=== PATIENT | male | born 1970 | race Caucasian/White ===

== ENCOUNTER 2017-09-05 14:14 | Emergency (ER) | payer SELFPAY ==
[2017-09-05] MEDS ORDERED: HYDROCODONE/ACETAMINOPHEN 5-325 MG TABLET PO ONE (16:01)
--- NOTE | 2017-09-05 18:04 | RADIOLOGY REPORT (SQ) ---
EXAM DESCRIPTION: CT ABD/PELVIS NO ORAL OR IV COMPLETED DATE/TIME: 09/05/2017 4:14 pm REASON FOR STUDY: flank pain COMPARISON: March 2014 TECHNIQUE: CT scan of the abdomen and pelvis performed without intravenous or oral contrast. Images reviewed with lung, soft tissue, and bone windows. Reconstructed coronal and sagittal MPR images revi ewed. All images stored on PACS. All CT scanners at this facility use dose modulation, iterative reconstruction, and/or weight based d osing when appropriate to reduce radiation dose to as low as reasonably achievable (ALARA). [facility]: Dose Right [facility]: CareDose [facility]: Dose Right [facility]: Teradose 4D [facility]: Smart ExpertFlyer RADIATION DOSE: CT Rad equipment meets quality standard of care and radiation dose reduction techniq ues were employed. CTDIvol: 14.6 mGy. DLP: 798 mGy-cm.mGy. LIMITATIONS: None. FINDINGS: LOWER CHEST: No significant findings. No nodules or infiltrates. NON-CONTRASTED LIVER, SPLEEN, ADRENALS: Evaluation limited by lack of IV contrast. No identified sign ificant masses. PANCREAS: No masses. No peripancreatic inflammatory changes. GALLBLADDER: No identified stones by CT criteria. No inflammatory changes to suggest cholecystitis. RIGHT KIDNEY AND URETER: No suspicious masses. Assessment limited by lack of IV contrast. No signif icant calcifications. No hydronephrosis or hydroureter. LEFT KIDNEY AND URETER: No suspicious masses. Assessment limited by lack of IV contrast. No signifi cant calcifications. No hydronephrosis or hydroureter. AORTA AND RETROPERITONEUM: No aneurysm. No retroperitoneal masses or adenopathy. BOWEL AND PERITONEAL CAVITY: No obvious masses or inflammatory changes. No free fluid. APPENDIX: Normal. PELVIS, BLADDER, AND ABDOMINAL WALL:No abnormal masses. No free fluid. Bladder normal. BONES: No significant findings. OTHER: No other significant finding. IMPRESSION: NO SIGNIFICANT OR ACUTE PROCESS IN THE ABDOMEN OR PELVIS. COMMENT: Quality ID # [id number]: Final reports with documentation of one or more dose reduction techniques (e.g., Automated exposure control, adjustment of the mA and/or kV according to patient size, use of iterative reconstruction technique) TECHNICAL DOCUMENTATION: JOB ID: [id number] [employer]- All Rights Reserved
[2017-09-05 18:07] LABS: APPEARANCE,URINE CLEAR; BILIRUBIN,URINE NEGATIVE (NEGATIVE); COLOR,URINE STRAW; GLUCOSE, URINE NEGATIVE (NEGATIVE); KETONES,URINE NEGATIVE (NEGATIVE); LEUKOCYTE ESTERASE,URINE NEGATIVE (NEGATIVE); NITRITE,URINE NEGATIVE (NEGATIVE); PROTEIN,URINE NEGATIVE (NEGATIVE); URINE SPECIFIC GRAVITY 1.013; UROBILINOGEN,URINE NEGATIVE mg/dL (<2.0)
--- NOTE | 2017-09-05 19:30 | ER Document Report ---
ED General - General Chief Complaint: Flank Pain Stated Complaint: FLANK PAIN Time Seen by Provider: 09/05/17 16:01 Mode of Arrival: Ambulatory Information source: Patient Notes: Patient states he has had several days of bilateral low back pain. Radiates into the buttocks and the abdomen. Nothing makes it better or worse. He does not feel that movement changes the pain much. Some nausea no vomiting or diarrhea. No problems with urination or bowel movements. No rashes. No known trauma. The pain is sharp. TRAVEL OUTSIDE OF THE [place] IN LAST 30 DAYS: No - Related Data Allergies/Adverse Reactions: Penicillins Allergy (Verified 04/24/16 09:25) Sulfa (Sulfonamide Antibiotics) Allergy (Verified 04/24/16 09:25) Past Medical History - General Information source: Patient - Social History Smoking Status: Unknown if Ever Smoked Frequency of alcohol use: Occasional Drug Abuse: None Lives with: Family Family History: Reviewed & Not Pertinent - Past Medical History Cardiac Medical History: Reports: Hx Hypercholesterolemia Neurological Medical History: Reports: Hx Migraine GI Medical History: Reports: Hx Irritable Bowel, Hx Colonoscopy - Diverticulosis , Hx Endoscopy. Denies: Hx Diverticulitis - Immunizations Hx Diphtheria, Pertussis, Tetanus Vaccination: Yes Review of Systems - Review of Systems Constitutional: denies: Chills, Fever Cardiovascular: denies: Chest pain, Palpitations Respiratory: denies: Cough, Short of breath -: Yes All other systems reviewed and negative Physical Exam - Vital signs Vitals: Temp Pulse Resp BP Pulse Ox 98.0 F 73 16 119/67 97 09/05/17 14:31 09/05/17 14:31 09/05/17 14:31 09/05/17 14:31 09/05/17 14:31 Interpretation: Normal - General General appearance: Appears well, Alert - HEENT Head: Normocephalic, Atraumatic Eyes: Normal Pupils: PERRL - Respiratory Respiratory status: No respiratory distress Chest status: Nontender Breath sounds: Normal Chest palpation: Normal - Cardiovascular Rhythm: Regular Heart sounds: Normal auscultation Murmur: No - Abdominal Inspection: Normal Distension: No distension Bowel sounds: Normal Tenderness: Nontender Organomegaly: No organomegaly - Back Back: Normal, Nontender - Extremities General upper extremity: Normal inspection, Nontender, Normal color, Normal ROM , Normal temperature General lower extremity: Normal inspection, Nontender, Normal color, Normal ROM , Normal temperature, Normal weight bearing. No: Gera's sign - Neurological Neuro grossly intact: Yes Cognition: Normal Orientation: AAOx4 [place] Coma Scale Eye Opening: Spontaneous [place] Coma Scale Verbal: Oriented [place] Coma Scale Motor: Obeys Commands [place] Coma Scale Total: 15 Speech: Normal Motor strength normal: LUE, RUE, LLE, RLE Sensory: Normal - Psychological Associated symptoms: Normal affect, Normal mood - Skin Skin Temperature: Warm Skin Moisture: Dry Skin Color: Normal Course - Vital Signs Vital signs: Temp Pulse Resp BP Pulse Ox 98.0 F 73 16 119/67 97 09/05/17 14:31 09/05/17 14:31 09/05/17 14:31 09/05/17 14:31 09/05/17 14:31 - Diagnostic Test Radiology reviewed: Image reviewed, Reports reviewed - CT exam shows no evidence of acute intra-abdominal pathology Discharge - Discharge Clinical Impression: Low back pain Qualifiers: Chronicity: acute Back pain laterality: bilateral Sciatica presence: without sciatica Qualified Code(s): M54.5 - Low back pain Condition: Stable Disposition: HOME, SELF-CARE Instructions: Low Back Pain ([facility]) Additional Instructions: Your blood pressure is borderline elevated. Please have this rechecked within 1 week by your doctor. Prescriptions: Hydrocodone/Acetaminophen [[place] 5-325 mg Tablet] 1 tab PO Q6 PRN 4 Days #12 tablet PRN Reason: Forms: Elevated Blood Pressure, Return to Work Referrals: FERNIE YOUSIF MD [COMMUNITY BASED STAFF] - Follow up in 3-5 days
[2017-09-05 20:17] VITALS: BP 121/76
== END 2017-09-05 20:10 | disposition home or self-care (01) ==
LOC: ER 14:14
DX: M54.5 Low back pain (principal); R11.0 Nausea; Z88.0 Allergy status to penicillin; Z88.2 Allergy status to sulfonamides
CPT/HCPCS: 74176; 81001; 99284

== ENCOUNTER 2017-09-29 16:50 | Emergency (ER) | payer SELFPAY ==
--- NOTE | 2017-09-29 18:34 | ER Document Report ---
ED Medical Screen (RME) - General Chief Complaint: Dizziness Stated Complaint: DIZZINESS Time Seen by Provider: 09/29/17 18:15 Mode of Arrival: Ambulatory Information source: Patient TRAVEL OUTSIDE OF THE [place] IN LAST 30 DAYS: No - HPI Notes: 09/29/17 18:30 46-year-old male with history of hypertension presents today with complaints of having 2 episodes of feeling dizzy with disorientation that was fleeting, word finding, feelings of syncope, decreased appetite that occurred 3 days ago as well as today and left-sided chest pain that occurred 3 days ago. Denies any trauma. Denies any numbness or tingling down bilateral upper and lower extremities, denies any new medications, new foods or travel. Denies any rashes. Reports he had intermittent blurred vision when he has these episodes that lasted for a few hours. Also feels like he is "losing sense of time". Reports this is not for him, has never had this issue before. Denies that the room is spinning or that he is spinning. Denies any nausea, no vomiting or diarrhea, abdominal pain, shortness of breath, rectal, penile or back pain. Denies any lightheadedness, loss of vision or double vision. Denies speech changes, facial droop, numbness or tingling in bilateral upper or lower extremities. States chest pain was fleeting lasted for only a few seconds. Denies any prior history of cardiac issues. Grandfather from a stroke, parents from cancers of unknown origin and unsure how grandmother had passed. Patient does not smoke. Denies any illicit drug use. Patient reports he also feels stressed due to increased work. - Related Data Allergies/Adverse Reactions: Penicillins Allergy (Verified 09/29/17 16:51) Sulfa (Sulfonamide Antibiotics) Allergy (Verified 09/29/17 16:51) Past Medical History - General Information source: Patient - Social History Chew tobacco use (# tins/day): No Frequency of alcohol use: None Drug Abuse: None Family history: CVA, Hypertension - Past Medical History Cardiac Medical History: Reports: Hx Hypercholesterolemia Neurological Medical History: Reports: Hx Migraine Renal/ Medical History: Denies: Hx Peritoneal Dialysis GI Medical History: Reports: Hx Irritable Bowel, Hx Colonoscopy - Diverticulosis , Hx Endoscopy. Denies: Hx Diverticulitis - Immunizations Hx Diphtheria, Pertussis, Tetanus Vaccination: Yes Review of Systems - Review of Systems Constitutional: No symptoms reported EENT: No symptoms reported Cardiovascular: No symptoms reported Respiratory: No symptoms reported Gastrointestinal: No symptoms reported Genitourinary: No symptoms reported Male Genitourinary: No symptoms reported Musculoskeletal: No symptoms reported Skin: No symptoms reported Hematologic/Lymphatic: No symptoms reported Neurological/Psychological: See HPI Physical Exam - Vital signs Vitals: Temp Pulse Resp BP Pulse Ox 98.7 F 71 20 114/63 97 09/29/17 17:04 09/29/17 17:04 09/29/17 17:04 09/29/17 17:04 09/29/17 17:04 - Respiratory Respiratory status: No respiratory distress Chest status: Nontender Breath sounds: Normal Chest palpation: Normal - Cardiovascular Rhythm: Regular Heart sounds: Normal auscultation Normal capillary refill: Yes - Neurological Neuro grossly intact: Yes Cognition: Normal Orientation: AAOx4 [place] Coma Scale Eye Opening: Spontaneous [place] Coma Scale Verbal: Oriented [place] Coma Scale Motor: Obeys Commands [place] Coma Scale Total: 15 Speech: Normal Cranial nerves: Normal Cerebellar coordination: Normal Motor strength normal: LUE, RUE, LLE, RLE Additional motor exam normals: Equal childcare aide Babinski reflex: Normal (flexor plantar) - Psychological Associated symptoms: Normal affect, Normal mood, Anxious Course - Vital Signs Vital signs: Temp Pulse Resp BP Pulse Ox 98.7 F 71 20 114/63 97 09/29/17 17:04 09/29/17 17:04 09/29/17 17:04 09/29/17 17:04 09/29/17 17:04
[2017-09-29 19:13] LABS: ABSOLUTE LYMPHOCYTES (AUTO) 2.7 10^3/uL (0.5-4.7); ABSOLUTE MONOCYTES (AUTO) 1.2 10^3/uL (0.1-1.4); ABSOLUTE NEUT (AUTO) 8.8 10^3/uL (1.7-8.2); BASOPHILS % (AUTO) 0.4 % (0-2); EOSINOPHILS % (AUTO) 0.2 % (0-6); HEMATOCRIT 43.1 % (37.9-51.0); HEMOGLOBIN 15.2 g/dL (13.5-17.0); LYMPHOCYTES % (AUTO) 21.1 % (13-45); MEAN CORPUSCULAR HEMOGLOBIN 30.2 pg (27.0-33.4); MEAN CORPUSCULAR HGB CONC 35.3 g/dL (32.0-36.0); MEAN CORPUSCULAR VOLUME 86 fl (80-97); MONOCYTES % (AUTO) 9.2 % (3-13); PLATELET COUNT 350 10^3/uL (150-450); RED BLOOD COUNT 5.04 10^6/uL (4.35-5.55); RED CELL DISTRIBUTION WIDTH 12.8 % (11.5-14.0); SEGMENTED NEUTROPHILS % (AUTO) 69.1 % (42-78); TOTAL CELLS COUNTED % (AUTO) 100 %; WHITE BLOOD COUNT 12.8 10^3/uL (4.0-10.5)
--- NOTE | 2017-09-29 19:14 | RADIOLOGY REPORT (SQ) ---
EXAM DESCRIPTION: CT HEAD WITHOUT COMPLETED DATE/TIME: 09/29/2017 7:05 pm REASON FOR STUDY: confusion, dizziness, word findings COMPARISON: None. TECHNIQUE: Axial images acquired through the brain without intravenous contrast. Images reviewed wi th bone, brain and subdural windows. Images stored on PACS. All CT scanners at this facility use dose modulation, iterative reconstruction, and/or weight based d osing when appropriate to reduce radiation dose to as low as reasonably achievable (ALARA). [facility]: Dose Right [facility]: CareDose [facility]: Dose Right [facility]: Teradose 4D [facility]: [employer] Direct RADIATION DOSE: CT Rad equipment meets quality standard of care and radiation dose reduction techniq ues were employed. CTDIvol: 64.6 mGy. DLP: 1163 mGy-cm. mGy. LIMITATIONS: None. FINDINGS: VENTRICLES: Normal size and contour. CEREBRUM: No masses. No hemorrhage. No midline shift. No evidence for acute infarction. Normal gra y/white matter differentiation. No areas of low density in the white matter. CEREBELLUM: No masses. No hemorrhage. No alteration of density. No evidence for acute infarction. EXTRAAXIAL SPACES: No fluid collections. No masses. ORBITS AND GLOBE: No intra- or extraconal masses. Normal contour of globe without masses. CALVARIUM: No fracture. PARANASAL SINUSES: No fluid or mucosal thickening. SOFT TISSUES: No mass or hematoma. OTHER: No other significant finding. IMPRESSION: NORMAL BRAIN CT WITHOUT CONTRAST. EVIDENCE OF ACUTE STROKE: NO. COMMENT: Quality ID # [id number]: Final reports with documentation of one or more dose reduction techniques (e.g., Automated exposure control, adjustment of the mA and/or kV according to patient size, use of iterative reconstruction technique) TECHNICAL DOCUMENTATION: JOB ID: [id number] [employer]- All Rights Reserved
[2017-09-29 19:31] LABS: ANION GAP 15 (5-19); BLOOD UREA NITROGEN 27 mg/dL (7-20); CALCIUM 10.4 mg/dL (8.4-10.2); CARBON DIOXIDE 28 mmol/L (22-30); CHLORIDE 95 mmol/L (98-107); CREATINE KINASE 254 U/L (55-170); GLUCOSE 97 mg/dL (75-110); POTASSIUM 3.9 mmol/L (3.6-5.0); SODIUM 137.7 mmol/L (137-145)
--- NOTE | 2017-09-29 19:33 | RADIOLOGY REPORT (SQ) ---
EXAM DESCRIPTION: CHEST SINGLE VIEW COMPLETED DATE/TIME: 09/29/2017 7:13 pm REASON FOR STUDY: L sided cp x 3 days ago COMPARISON: 2012. NUMBER OF VIEWS: One view. TECHNIQUE: Single frontal radiographic view of the chest acquired. LIMITATIONS: None. FINDINGS: LUNGS AND PLEURA: No opacities, masses or pneumothorax. No pleural effusion. MEDIASTINUM AND HILAR STRUCTURES: No masses. Contour normal. HEART AND VASCULAR STRUCTURES: Heart normal in size. Normal vasculature. BONES: No acute findings. HARDWARE: None in the chest. OTHER: No other significant finding. IMPRESSION: NO SIGNIFICANT RADIOGRAPHIC FINDING IN THE CHEST. TECHNICAL DOCUMENTATION: JOB ID: [id number] [employer]- All Rights Reserved
--- NOTE | 2017-09-29 22:04 | EKG REPORT ---
SEVERITY:- BORDERLINE ECG - ECTOPIC ATRIAL RHYTHM : Confirmed by: Frida Wynne 29-Sep-2017 22:03:34
--- NOTE | 2017-09-29 22:34 | ER Document Report ---
ED Dizziness/Weakness - General Mode of Arrival: Ambulatory Information source: Patient TRAVEL OUTSIDE OF THE [place] IN LAST 30 DAYS: No <WIN GORE - Last Filed: 09/29/17 23:58> <MARCIANO BUTLER - Last Filed: 09/30/17 00:01> - General Chief Complaint: Dizziness Stated Complaint: DIZZINESS Time Seen by Provider: 09/29/17 18:15 Notes: Patient is a 46-year-old male that presents to the emergency department today with complaints of intermittent dizziness for the last 6 days. Patient states that dizziness is intermittent and he has not been able to pinpoint anything that causes it to occur. Patient states he has been getting a maximum of four hours of sleep recently due to increased stress. Patient states he has recently started a new job and he thinks this has been adding to his stress. Patient states he tried [id number] sleep aids with no relief and his 's trazodone twice but did not look like the "dry mouth" that he gave him. Patient states he has not been taking stimulants recently, he stopped drinking soda around 3 or 4 weeks ago. Patient states he has had recent weight loss secondary to "no appetite". Patient denies any focal neurological deficits, weakness, or headaches. (WIN GORE) - Related Data Allergies/Adverse Reactions: Penicillins Allergy (Verified 09/29/17 16:51) Sulfa (Sulfonamide Antibiotics) Allergy (Verified 09/29/17 16:51) Past Medical History - General Information source: Patient - Social History Smoking Status: Never Smoker Cigarette use (# per day): No Chew tobacco use (# tins/day): No Frequency of alcohol use: None Drug Abuse: None Lives with: Family Family History: Reviewed & Not Pertinent Patient has suicidal ideation: No Patient has homicidal ideation: No - Past Medical History Cardiac Medical History: Reports: Hx Hypercholesterolemia Neurological Medical History: Reports: Hx Migraine GI Medical History: Reports: Hx Irritable Bowel, Hx Colonoscopy - Diverticulosis , Hx Endoscopy Psychiatric Medical History: Reports: Hx Anxiety - xanax daily - Immunizations Hx Diphtheria, Pertussis, Tetanus Vaccination: Yes <WIN GORE - Last Filed: 09/29/17 23:58> Review of Systems - Review of Systems Constitutional: See HPI, Weight loss - "no appetite" EENT: No symptoms reported Cardiovascular: See HPI, Other - near-syncope. denies: Syncope Respiratory: No symptoms reported Gastrointestinal: No symptoms reported Genitourinary: No symptoms reported Male Genitourinary: No symptoms reported Musculoskeletal: No symptoms reported Skin: No symptoms reported Hematologic/Lymphatic: No symptoms reported Neurological/Psychological: See HPI, Anxiety - >stress. denies: Weakness -: Yes All other systems reviewed and negative <WIN GORE - Last Filed: 09/29/17 23:58> Physical Exam <WIN GORE - Last Filed: 09/29/17 23:58> <MARCIANO BUTLER - Last Filed: 09/30/17 00:01> - Vital signs Vitals: Temp Pulse Resp BP Pulse Ox 98.7 F 71 20 114/63 97 09/29/17 17:04 09/29/17 17:04 09/29/17 17:04 09/29/17 17:04 09/29/17 17:04 - Notes Notes: PHYSICAL EXAM GENERAL: Alert, interacts well. No acute distress. HEAD: Normocephalic, atraumatic. EYES: Pupils equal, round, and reactive to light. Extraocular movements intact. ENT: Oral mucosa moist, tongue midline. NECK: Full range of motion. Supple. Trachea midline. LUNGS: Clear to auscultation bilaterally, no wheezes, rales, or rhonchi. No respiratory distress. HEART: Regular rate and rhythm. No murmurs, gallops, or rubs. ABDOMEN: Soft, non-tender. Non-distended. Bowel sounds present in all 4 quadrants. No guarding, rigidity, or rebound. EXTREMITIES: Moves all 4 extremities spontaneously. No edema, radial and dorsalis pedis pulses 2/4 bilaterally. No cyanosis. NEUROLOGICAL: Alert and oriented x3. Normal speech. Biceps and patellar DTRs 2+ bilaterally. No focal neurological deficits. PSYCH: Anxious SKIN: Warm, dry, normal turgor. No rashes or lesions noted. (WIN GORE) Course - Laboratory Result Diagrams: 09/29/17 18:58 09/29/17 18:58 <WIN GORE - Last Filed: 09/29/17 23:58> - Laboratory Result Diagrams: 09/29/17 18:58 09/29/17 18:58 <MARCIANO BUTLER - Last Filed: 09/30/17 00:01> - Re-evaluation Re-evalutation: 09/29/17 23:05 CBC shows slight leukocytosis of 12.8 otherwise unremarkable, basic metabolic profile unremarkable, CK elevated but this goes along with the fact that he is recently started a job stocking shelves, troponin negative, CT scan of the head shows no chronic process, chest x-ray shows no acute process. Symptoms are not suggestive of a stroke. Patient has no difficulty ambulating, no ataxia. Actually suspect that this patient's symptoms are coming from sleep deprivation , patient states that he is getting no more than 3 or maybe 4 hours of sleep a day for the past week or more. Patient is encouraged to get at least 8 hours of sleep a night, drink plenty of fluids, do not go more than 12 hours without eating and encouraged to return to the emergency department for facial droop, focal weakness or any new or concerning symptoms including syncope. Patient is prescribed Vistaril to help with his difficulty sleeping. Patient is also encouraged to follow-up with his primary care physician and his psychiatrist who are currently treating his anxiety with alprazolam 0.25-0.5 mg. Discussed with patient that this is not the best long-term anxiety medication and he should discuss other options with them. (MARCIANO BUTLER) - Vital Signs Vital signs: Temp Pulse Resp BP Pulse Ox 98.1 F 70 14 114/69 96 09/29/17 23:54 09/29/17 23:54 09/29/17 23:54 09/29/17 23:54 09/29/17 23:54 - Laboratory Laboratory results interpreted by me: 09/29/17 09/29/17 18:58 18:58 WBC 12.8 H Absolute Neutrophils 8.8 H Chloride 95 L BUN 27 H Calcium 10.4 H Creatine Kinase 254 H Discharge <WIN GORE - Last Filed: 09/29/17 23:58> <MARCIANO BUTLER - Last Filed: 09/30/17 00:01> - Discharge Clinical Impression: Sleep deprivation, Light-headed feeling, Anxiety Condition: Stable Disposition: HOME, SELF-CARE Additional Instructions: I suspect your increased anxiety is part of what is causing your difficulty sleeping but also your use of caffeine with your aspirin as well as her abnormal sleep schedule. Please make sure you are sleeping the same hours every day, this means if during the days that she work you normally sleep from 11:00 or midnight until 8 or 9 AM he should keep the same schedule on the day she were not working. I have prescribed Vistaril to help with your difficulty getting to sleep at night, you may take 1-2 tablets as needed to help you fall asleep, if you wake up in the middle of the night and have at least another 6 hours to sleep you may take a second tablet. Avoid caffeine, avoid stimulant medications. Avoid TV for at least 2 hours prior to bedtime. You are taking alprazolam for your anxiety, this is not always the best long- term anxiety medication out there, please discuss with your primary care physician switching you to a longer acting antianxiety medication, sometimes medications like Paxil or Prozac actually work better for anxiety than alprazolam. There is no sign of stroke today. Please return for focal weakness, slurred speech, facial droop or any new or concerning symptoms. Prescriptions: Hydroxyzine Pamoate [Vistaril 25 mg Capsule] 1 - 2 mg PO QHS #30 capsule Forms: Return to Work Referrals: SANDEEP SINGLETON MD [Primary Care Provider] - Follow up as needed Scribe Attestation: 09/30/17 00:01 I personally performed the services described in the documentation, reviewed and edited the documentation which was dictated to the scribe in my presence, and it accurately records my words and actions. (MARCIANO BUTLER) Scribe Documentation - Scribe Written by Ky:: Ky Marie, 09/29/2017 [id number] acting as scribe for :: Allison <WIN GORE - Last Filed: 09/29/17 23:58>
[2017-09-29] MEDS ORDERED: HYDROXYZINE PAMOATE 25 MG CAPSULE (4 CAP/ER DISP) PO SCH (23:15)
[2017-09-29 23:57] VITALS: BP 114/69
== END 2017-09-29 23:58 | disposition home or self-care (01) ==
LOC: ER 16:50
DX: R42 Dizziness and giddiness (principal); F41.9 Anxiety disorder, unspecified; Z72.820 Sleep deprivation; E78.00 Pure hypercholesterolemia, unspecified; Z88.0 Allergy status to penicillin; Z88.2 Allergy status to sulfonamides
CPT/HCPCS: 93005; 99285; 36415; 82550; 85025; 80048; 84484; 71045; 70450; 93010; J3490

== ENCOUNTER → 2018-01-31 | Outpatient (CLI) | payer SELFPAY ==
[2018-01-31 12:39] LABS: URINE AMPHETAMINES SCREEN NEGATIVE; URINE BARBITURATES SCREEN NEGATIVE; URINE COCAINE SCREEN NEGATIVE; URINE MARIJUANA (THC) SCREEN NEGATIVE; URINE METHADONE SCREEN NEGATIVE; URINE PHENCYCLIDINE SCREEN NEGATIVE
[2018-01-31 12:42] LABS: ANION GAP 13 (5-19); BLOOD UREA NITROGEN 19 mg/dL (7-20); CARBON DIOXIDE 25 mmol/L (22-30); CHLORIDE 104 mmol/L (98-107); CHOLESTEROL 223.15 mg/dL (0-200); GLUCOSE 116 mg/dL (75-110); POTASSIUM 4.7 mmol/L (3.6-5.0); SODIUM 141.5 mmol/L (137-145); TRIGLYCERIDES 279 mg/dL (<150)
[2018-01-31 12:47] LABS: URINE BENZODIAZEPINES SCREEN UNCONFIRMED POSITIVE
[2018-01-31 12:52] LABS: DIRECT LDL 149 mg/dL (<100)
[2018-01-31 12:53] LABS: VLDL CHOLESTEROL 55.8 mg/dL (10-31)
[2018-02-02 12:01] LABS: OXYCODONE/OXYMORPHONE UR Negative ng/mL (Cutoff=200)
[2018-02-05 07:21] LABS: BENZODIAZEPINE CONFIRMATION UR Positive (.)
== END ==
LOC: OD 11:29
PROVIDERS: ATTEND Family Medicine
DX: E78.5 Hyperlipidemia, unspecified (principal); I10 Essential (primary) hypertension; M15.0 Primary generalized (osteo)arthritis; Z79.899 Other long term (current) drug therapy
CPT/HCPCS: 36415; 84443; 80048; 80307; 83036; 80361; 80061; G0480 ×4

== ENCOUNTER 2018-09-17 23:24 | Emergency (ER) | payer SELFPAY ==
[2018-09-18 00:02] VITALS: BP 110/74
== END 2018-09-18 02:00 | disposition left against medical advice (07) ==
LOC: ER 23:24
DX: Z53.21 Procedure and treatment not carried out due to patient leaving prior to being seen by health care provider (principal)

== ENCOUNTER → 2019-01-11 | Outpatient (CLI) | payer BC ==
[2019-01-11 10:26] LABS: ANION GAP 12 (5-19); BLOOD UREA NITROGEN 19 mg/dL (7-20); CALCIUM 10.2 mg/dL (8.4-10.2); CARBON DIOXIDE 26 mmol/L (22-30); CHLORIDE 100 mmol/L (98-107); CHOLESTEROL 270.21 mg/dL (0-200); GLUCOSE 111 mg/dL (75-110); POTASSIUM 4.9 mmol/L (3.6-5.0); SODIUM 137.6 mmol/L (137-145); TRIGLYCERIDES 304 mg/dL (<150)
[2019-01-11 10:36] LABS: DIRECT LDL 149 mg/dL (<100)
[2019-01-11 10:42] LABS: VLDL CHOLESTEROL 60.8 mg/dL (10-31)
[2019-01-15 13:55] LABS: OXYCODONE/OXYMORPHONE UR Negative ng/mL (Cutoff=200)
== END ==
LOC: OD 08:28
PROVIDERS: ATTEND Family Medicine
DX: E78.5 Hyperlipidemia, unspecified (principal); I10 Essential (primary) hypertension; M15.0 Primary generalized (osteo)arthritis; Z79.899 Other long term (current) drug therapy
CPT/HCPCS: 80361; 36415; 84443; 80048; 83036; 80061; G0480 ×2; 80365

== ENCOUNTER 2019-05-23 08:03 | Emergency (ER) | payer OTHER, BC ==
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
[2019-05-23 09:37] LABS: ABSOLUTE BASOPHILS # (AUTO) 0.1 10^3/uL (0.0-0.2); ABSOLUTE EOSINOPHILS # (AUTO) 0.2 10^3/uL (0.0-0.6); ABSOLUTE LYMPHOCYTES (AUTO) 2.2 10^3/uL (0.5-4.7); ABSOLUTE MONOCYTES (AUTO) 0.9 10^3/uL (0.1-1.4); ABSOLUTE NEUT (AUTO) 4.3 10^3/uL (1.7-8.2); BASOPHILS % (AUTO) 0.9 % (0-2); EOSINOPHILS % (AUTO) 2.4 % (0-6); HEMATOCRIT 40.3 % (37.9-51.0); HEMOGLOBIN 13.8 g/dL (13.5-17.0); LYMPHOCYTES % (AUTO) 28.3 % (13-45); MEAN CORPUSCULAR HEMOGLOBIN 30.6 pg (27.0-33.4); MEAN CORPUSCULAR HGB CONC 34.2 g/dL (32.0-36.0); MEAN CORPUSCULAR VOLUME 89 fl (80-97); MONOCYTES % (AUTO) 12.3 % (3-13); PLATELET COUNT 291 10^3/uL (150-450); SEGMENTED NEUTROPHILS % (AUTO) 56.1 % (42-78); TOTAL CELLS COUNTED % (AUTO) 100 %; WHITE BLOOD COUNT 7.6 10^3/uL (4.0-10.5)
[2019-05-23 09:40] LABS: ALBUMIN 4.5 g/dL (3.5-5.0); ALKALINE PHOSPHATASE 69 U/L (38-126); ANION GAP 8 (5-19); ASPARTATE AMINO TRANSFERASE 39 U/L (17-59); BILIRUBIN,DIRECT 0.2 mg/dL (0.0-0.4); BILIRUBIN,TOTAL 0.5 mg/dL (0.2-1.3); BLOOD UREA NITROGEN 28 mg/dL (7-20); CALCIUM 9.4 mg/dL (8.4-10.2); CARBON DIOXIDE 28 mmol/L (22-30); CHLORIDE 99 mmol/L (98-107); GLUCOSE 106 mg/dL (75-110); POTASSIUM 4.5 mmol/L (3.6-5.0); TOTAL PROTEIN 7.5 g/dL (6.3-8.2)
[2019-05-23 10:42] LABS: APPEARANCE,URINE CLEAR; BILIRUBIN,URINE NEGATIVE (NEGATIVE); COLOR,URINE YELLOW; GLUCOSE, URINE NEGATIVE (NEGATIVE); KETONES,URINE NEGATIVE (NEGATIVE); LEUKOCYTE ESTERASE,URINE NEGATIVE (NEGATIVE); NITRITE,URINE NEGATIVE (NEGATIVE); PROTEIN,URINE NEGATIVE (NEGATIVE); URINE SPECIFIC GRAVITY 1.027; UROBILINOGEN,URINE NEGATIVE mg/dL (<2.0)
--- NOTE | 2019-05-23 10:52 | RADIOLOGY REPORT (SQ) ---
EXAM DESCRIPTION: CHEST 2 VIEWS COMPLETED DATE/TIME: 05/23/2019 10:39 am REASON FOR STUDY: chest pain COMPARISON: None. EXAM PARAMETERS: NUMBER OF VIEWS: two views TECHNIQUE: Digital Frontal and Lateral radiographic views of the chest acquired. RADIATION DOSE: NA LIMITATIONS: none FINDINGS: LUNGS AND PLEURA: No opacities, masses or pneumothorax. No pleural effusion. MEDIASTINUM AND HILAR STRUCTURES: No masses or contour abnormalities. HEART AND VASCULAR STRUCTURES: Heart normal size. No evidence for failure. BONES: No acute findings. HARDWARE: None in the chest. OTHER: No other significant finding. IMPRESSION: NO ACUTE RADIOGRAPHIC FINDING IN THE CHEST. TECHNICAL DOCUMENTATION: JOB ID: [id number] [employer]- All Rights Reserved Reading location - IP/workstation name: [email or web address]
[2019-05-23 11:08] VITALS: BP 109/78
== END 2019-05-23 11:15 | disposition home or self-care (01) ==
LOC: ER 08:03
DX: M79.10 Myalgia, unspecified site (principal); V49.9XXA Car occupant (driver) (passenger) injured in unspecified traffic accident, initial encounter; E78.00 Pure hypercholesterolemia, unspecified; I10 Essential (primary) hypertension; Z88.0 Allergy status to penicillin; Z88.2 Allergy status to sulfonamides
CPT/HCPCS: 36415; 71046; 80053; 81001; 85025; 99284

== ENCOUNTER 2019-06-02 10:10 | Emergency (ER) | payer OTHER, BC ==
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
[2019-06-02 12:28] VITALS: BP 109/81
== END 2019-06-02 12:23 | disposition home or self-care (01) ==
LOC: ER 10:10
DX: M89.8X4 Other specified disorders of bone, hand (principal); M79.645 Pain in left finger(s); V49.60XA Unspecified car occupant injured in collision with unspecified motor vehicles in traffic accident, initial encounter; I10 Essential (primary) hypertension
CPT/HCPCS: 73130; L3908; 99283

== ENCOUNTER 2019-07-24 16:53 | Emergency (ER) | payer BC, OTHER ==
[2019-07-24] MEDS ORDERED: MORPHINE SULFATE 10 MG/ML INJ IV ONE (17:02)
[2019-07-24] MEDS ORDERED: LIDOCAINE 2% VISCOUS SOLN 20 ML UDCUP PO ONE (17:02)
[2019-07-24] MEDS ORDERED: METOCLOPRAMIDE HCL ORAL SOLN 10 MG/10 ML UDCUP PO ONE (17:02)
[2019-07-24] MEDS ORDERED: MAG HYDROX/AL HYDROX/SIMETH SUSP 30 ML UDCUP PO ONE (17:02)
[2019-07-24] MEDS ORDERED: ONDANSETRON HCL INJ/PF 4 MG/2 ML SDV IV ONE (17:03)
[2019-07-24] MEDS ORDERED: NORMAL SALINE 1000 ML 1,000 ML IV ONE (17:03)
--- NOTE | 2019-07-24 17:05 | ER Document Report ---
ED Medical Screen (RME) - General Chief Complaint: Abdominal Pain Stated Complaint: ABDOMINAL PAIN Time Seen by Provider: 07/24/19 16:57 Primary Care Provider: SANDEEP SINGLETON MD [Primary Care Provider] - Follow up as needed TRAVEL OUTSIDE OF THE [place] IN LAST 30 DAYS: No - HPI Notes: 07/24/19 17:03 48-year-old male presents emergency room with complaints of epigastric and umbil ical abdominal pain that started approximately 4 days become progressively worse. Denies any nausea vomiting or diarrhea. Patient states that the pain feels like his abdomen is going to "burst". Denies any fevers or chills. Patient denies any abdominal surgery, reports he still has gallbladder and his appendix. Denies any sick contacts or recent illnesses. took naproxen today without relief. I have greeted and performed a rapid initial assessment of this patient. A comprehensive ED assessment and evaluation of the patient, analysis of test results and completion of the medical decision making process will be conducted by additional ED providers. PHYSICAL EXAMINATION: GENERAL: Well-appearing, well-nourished and in mild distress. HEAD: Atraumatic, normocephalic. EYES: Pupils equal round extraocular movements intact, conjunctiva are normal. NECK: Normal range of motion LUNGS: No respiratory distress ABD: Right upper quadrant, periumbilical pain Musculoskeletal: Normal range of motion NEUROLOGICAL: Normal speech, normal gait. PSYCH: Normal mood, normal affect. SKIN: Warm, Dry, normal turgor, no rashes or lesions noted. - Related Data Allergies/Adverse Reactions: Penicillins Allergy (Verified 09/29/17 16:51) Sulfa (Sulfonamide Antibiotics) Allergy (Verified 09/29/17 16:51) Past Medical History - Social History Family history: CVA, Hypertension - Past Medical History Cardiac Medical History: Reports: Hx Hypercholesterolemia, Hx Hypertension Neurological Medical History: Reports: Hx Migraine Renal/ Medical History: Denies: Hx Peritoneal Dialysis GI Medical History: Reports: Hx Irritable Bowel, Hx Colonoscopy - Diverticulosis, Hx Endoscopy. Denies: Hx Diverticulitis Psychiatric Medical History: Reports: Hx Anxiety - xanax daily - Immunizations Hx Diphtheria, Pertussis, Tetanus Vaccination: Yes Doctor's Discharge - Discharge Referrals: SANDEEP SINGLETON MD [Primary Care Provider] - Follow up as needed
--- NOTE | 2019-07-24 17:31 | RADIOLOGY REPORT (SQ) ---
EXAM DESCRIPTION: CHEST SINGLE VIEW COMPLETED DATE/TIME: 07/24/2019 5:24 pm REASON FOR STUDY: epigastric pain COMPARISON: 05/23/2019 EXAM PARAMETERS: NUMBER OF VIEWS: One view. TECHNIQUE: Single frontal radiographic view of the chest acquired. RADIATION DOSE: NA LIMITATIONS: None. FINDINGS: LUNGS AND PLEURA: No opacities, masses or pneumothorax. No pleural effusion. MEDIASTINUM AND HILAR STRUCTURES: No masses. Contour normal. HEART AND VASCULAR STRUCTURES: Heart normal in size. Normal vasculature. BONES: No acute findings. HARDWARE: None in the chest. OTHER: No other significant finding. IMPRESSION: NO ACUTE RADIOGRAPHIC FINDING IN THE CHEST. TECHNICAL DOCUMENTATION: JOB ID: [id number] [employer]- All Rights Reserved Reading location - IP/workstation name: [email or web address]
[2019-07-24 18:08] LABS: ABSOLUTE BASOPHILS # (AUTO) 0.1 10^3/uL (0.0-0.2); ABSOLUTE EOSINOPHILS # (AUTO) 0.2 10^3/uL (0.0-0.6); ABSOLUTE LYMPHOCYTES (AUTO) 2.1 10^3/uL (0.5-4.7); ABSOLUTE MONOCYTES (AUTO) 0.9 10^3/uL (0.1-1.4); ABSOLUTE NEUT (AUTO) 9.1 10^3/uL (1.7-8.2); BASOPHILS % (AUTO) 0.5 % (0-2); EOSINOPHILS % (AUTO) 1.8 % (0-6); HEMATOCRIT 42.9 % (37.9-51.0); HEMOGLOBIN 14.8 g/dL (13.5-17.0); LYMPHOCYTES % (AUTO) 16.9 % (13-45); MEAN CORPUSCULAR HEMOGLOBIN 30.9 pg (27.0-33.4); MEAN CORPUSCULAR HGB CONC 34.5 g/dL (32.0-36.0); MEAN CORPUSCULAR VOLUME 89 fl (80-97); MONOCYTES % (AUTO) 7.4 % (3-13); PLATELET COUNT 330 10^3/uL (150-450); RED BLOOD COUNT 4.79 10^6/uL (4.35-5.55); RED CELL DISTRIBUTION WIDTH 13.9 % (11.5-14.0); SEGMENTED NEUTROPHILS % (AUTO) 73.4 % (42-78); TOTAL CELLS COUNTED % (AUTO) 100 %; WHITE BLOOD COUNT 12.4 10^3/uL (4.0-10.5)
[2019-07-24 18:33] LABS: ALBUMIN 4.4 g/dL (3.5-5.0); ALKALINE PHOSPHATASE 75 U/L (38-126); ANION GAP 14 (5-19); ASPARTATE AMINO TRANSFERASE 19 U/L (17-59); BILIRUBIN,DIRECT 0.2 mg/dL (0.0-0.4); BILIRUBIN,TOTAL 0.5 mg/dL (0.2-1.3); BLOOD UREA NITROGEN 21 mg/dL (7-20); CALCIUM 10.3 mg/dL (8.4-10.2); CARBON DIOXIDE 25 mmol/L (22-30); CHLORIDE 99 mmol/L (98-107); GLUCOSE 101 mg/dL (75-110); POTASSIUM 4.4 mmol/L (3.6-5.0); TOTAL PROTEIN 7.8 g/dL (6.3-8.2)
[2019-07-24] MEDS ORDERED: HYDROMORPHONE HCL INJ/PF 2 MG/ML AMPULE IV ONE (18:34)
--- NOTE | 2019-07-24 18:36 | ER Document Report ---
ED GI/ - General Chief Complaint: Abdominal Pain Stated Complaint: ABDOMINAL PAIN Time Seen by Provider: 07/24/19 16:57 Primary Care Provider: SANDEEP SINGLETON MD [Primary Care Provider] - Follow up tomorrow Mode of Arrival: Ambulatory Information source: Patient Notes: 48-year-old male presented to ED for complaint of epigastric pain with no nausea or vomiting. He states the pain is to the center upper abdomen at this time. He states the pain is been since Sunday. Patient states is been getting worse since yesterday but he did not come in until forced him. He was given a GI cocktail as well as some morphine and Zofran at triage. He states he has had no change in his symptoms with these medications. Also been given IV fluids which are still running. A CAT scan with IV contrast has been ordered but the chemistry is not been returned yet. He states he has sent a urine but I do not have results of that as yet. TRAVEL OUTSIDE OF THE [place] IN LAST 30 DAYS: No - HPI Patient complains to provider of: Abdominal pain. No: Vomiting - Epigastric Onset: Other - Since Sunday started getting worse yesterday and worse today Timing/Duration: Gradual Quality of pain: Burning - Sharp chest burning, Other - "Hurting " Severity at maximum: Severe Severity in ED: Severe Pain Level: 5 Location: Epigastric Exacerbated by: Denies Relieved by: Denies Similar symptoms previously: Yes Recently seen / treated by doctor: No - Related Data Allergies/Adverse Reactions: Penicillins Allergy (Verified 09/29/17 16:51) Sulfa (Sulfonamide Antibiotics) Allergy (Verified 09/29/17 16:51) Home Medications: "blood pressure and anxiety meds but I don't remember the names". - denies any anticoagulants Past Medical History - General Information source: Patient - Social History Smoking Status: Never Smoker Cigarette use (# per day): No Chew tobacco use (# tins/day): No Smoking Education Provided: No Frequency of alcohol use: None Drug Abuse: None Lives with: Family Family History: Reviewed & Not Pertinent Patient has suicidal ideation: No Patient has homicidal ideation: No - Past Medical History Cardiac Medical History: Reports: Hx Hypercholesterolemia, Hx Hypertension Neurological Medical History: Reports: Hx Migraine Renal/ Medical History: Denies: Hx Peritoneal Dialysis GI Medical History: Reports: Hx Irritable Bowel, Hx Colonoscopy - Diverticulosis, Hx Endoscopy Musculoskeletal Medical History: Reports Hx Musculoskeletal Deformity, Reports Hx Musculoskeletal Trauma Skin Medical History: Reports None Psychiatric Medical History: Reports: Hx Anxiety - xanax daily Traumatic Medical History: Reports: Hx Fractures - Ribs posterior Infectious Medical History: Reports: None Past Surgical History: Reports: Hx Myringotomy, Other - Right eye - Immunizations Immunizations up to date: Yes Hx Diphtheria, Pertussis, Tetanus Vaccination: Yes Review of Systems - Review of Systems Constitutional: No symptoms reported EENT: No symptoms reported Cardiovascular: No symptoms reported Respiratory: No symptoms reported Gastrointestinal: Abdominal pain. denies: Abdomen distended, Nausea, Vomiting Genitourinary: No symptoms reported Male Genitourinary: No symptoms reported Musculoskeletal: No symptoms reported Skin: No symptoms reported Hematologic/Lymphatic: No symptoms reported Neurological/Psychological: No symptoms reported Physical Exam - Vital signs Vitals: Temp Resp Pulse Ox 97.5 F 19 98 07/24/19 16:54 07/24/19 16:54 07/24/19 16:54 Interpretation: Normal - General General appearance: Appears well, Alert - HEENT Head: Normocephalic, Atraumatic Eyes: Normal Pupils: PERRL Ears: Normal External canal: Normal Tympanic membrane: Normal Sinus: Normal Nasal: Normal Mouth/Lips: Normal - Respiratory Respiratory status: No respiratory distress Chest status: Nontender Breath sounds: Normal Chest palpation: Normal - Cardiovascular Rhythm: Regular Heart sounds: Normal auscultation Murmur: No - Abdominal Inspection: Normal Distension: No distension Bowel sounds: Normal Tenderness: Tender - epigastric Organomegaly: No organomegaly - Back Back: Normal, Nontender - Extremities General upper extremity: Normal inspection, Nontender, Normal color, Normal ROM, Normal temperature General lower extremity: Normal inspection, Nontender, Normal color, Normal ROM, Normal temperature, Normal weight bearing. No: Gera's sign - Neurological Neuro grossly intact: Yes Cognition: Normal Orientation: AAOx4 [place] Coma Scale Eye Opening: Spontaneous [place] Coma Scale Verbal: Oriented [place] Coma Scale Motor: Obeys Commands [place] Coma Scale Total: 15 Speech: Normal Motor strength normal: LUE, RUE, LLE, RLE Sensory: Normal - Psychological Associated symptoms: Normal affect, Normal mood - Skin Skin Temperature: Warm Skin Moisture: Dry Skin Color: Normal Course - Re-evaluation Re-evalutation: 07/24/19 21:12 Labs chest x-ray and CT were discussed with patient. Written report of CT x-ray labs given to patient. Due to pain continuing in the epigastric area I did consult Dr. Rios did go in and examined the patient. She agreed patient could be discharged home with IV Pepcid and prescription of Pepcid. Patient continued to have pain in the epigastric area with IV fluids and morphine and Dilaudid. He states that the epigastric pain continued he was treated with Pepcid and instructed to follow-up with gastroenterology. - Vital Signs Vital signs: Temp Pulse Resp BP Pulse Ox 97.9 F 73 18 121/68 94 07/24/19 20:07 07/24/19 20:07 07/24/19 20:07 07/24/19 20:07 07/24/19 20:07 - Laboratory Result Diagrams: 07/24/19 17:38 07/24/19 17:38 Laboratory results interpreted by me: 07/24/19 07/24/19 17:38 17:38 WBC 12.4 H Absolute Neuts (auto) 9.1 H BUN 21 H Calcium 10.3 H - Diagnostic Test Radiology reviewed: Image reviewed, Reports reviewed Discharge - Discharge Clinical Impression: Abdominal pain Qualifiers: Abdominal location: upper abdomen, unspecified Qualified Code(s): R10.10 - Upper abdominal pain, unspecified Condition: Stable Disposition: HOME, SELF-CARE Instructions: Evaluation of Upper Abdominal Pain ([facility]) Additional Instructions: ABDOMINAL PAIN: There are many causes of abdominal pain. Pain can mean a serious problem requiring surgery (such as appendicitis). It can also be an innocent problem that goes away on its own (such as a viral infection). Often, time must pass to determine the cause of pain. The physician does not feel that hospitalization is necessary, at present. Things may change within the next 24 hours. Call the doctor or come back for re- examination if any problems occur, such as: (1) Pain that becomes more severe, steady, or becomes concentrated in one specific area. Also, pain that is more severe with movement or coughing. (2) Vomiting that persists or becomes more frequent. (3) Blood in the vomitus, urine, or bowel movements. Blood in the stool may have a tarry or black appearance. (4) Shaking chills or fever greater than 100 degrees F. (5) The abdomen becomes more distended or swollen. (6) Bowel movements cease. (7) Failure to improve as expected. NORMAL EXAM AND WORKUP: At this time, your examination and workup show no significant abnormality. No significant abnormal physical findings are noted. All laboratory, EKG, and i maging (x-ray, CT scans, ultrasound) studies that were ordered show no significant abnormality. Although your examination and all studies that were ordered showed no significant abnormal finding, there are no examinations and no studies that are 100% accurate. There is always the possibility that some abnormality could exist and not be detected with physical examination or within the limits and capabilities of laboratory and other studies. You should return or follow up as you were instructed on your visit today for further evaluation if your symptoms do not resolve. PAIN MEDICATION INJECTION: You have received an injection of a pain medication. You should experience significant pain relief within 45 minutes. This drug is a narcotic -- it will impair your judgement, slow your reaction time and make you sleepy (as well as relieve your pain). Narcotics also can cause nausea. You should not drive, work with machinery, or perform any task requiring mental alertness until all effects of the medication are gone -- six to eight hours. Do not take any alcohol, or sedatives, and do not take any other medication without checking with your physician. ANTINAUSEA MEDICATION: You have been given a medication to suppress nausea and vomiting. This type of medication can be given as a shot, pill, or suppository. It will usually last for many hours. Pills and shots usually last six to eight hours, suppositories last about 12 hours. For the typical illness, only one or two doses of the medication may be necessary. Mild lightheadedness may occur. This type of medicine can cause drowsiness. Do not drive or operate dangerous machinery while under its influence. Do not mix with alcohol. See your doctor at once if you have muscle spasms or tightness, or uncontrollable motions (particularly of the neck, mouth, or jaw). Persistent vomiting or severe lightheadedness should also be evaluated by the physician. Acid-Suppressing Medication You have a prescription for medicine which reduces the stomach's secretion of acid. Examples include Zantac, Tagament, and Pepcid. These drugs are often used to allow healing of ulcers or esophagitis. They may be needed to prevent recurrence of ulcers in some patients, or to prevent damage from acid reflux in the esophagus. Take all medication as prescribed, even after the pain is gone. Regular antacids may be added as needed if you have symptoms while taking this medicine. These medications sometimes are prescribed for allergic reactions because they have anti-histaminic effects and relieve the rash and itching of the reaction. There are usually no side effects from this medication. But, in rare cases and particularly in the elderly, serious problems can occur. Contact your doctor if there is fever, rash, hallucinations, confusion, or unusual bruising. Contact your doctor at once if you develop lightheadedness, black or bloody stool, or bloody vomitus. FOLLOW-UP CARE: If you have been referred to a physician for follow-up care, call the physicians office for an appointment as you were instructed or within the next two days. If you experience worsening or a significant change in your symptoms, notify the physician immediately or return to the Emergency Department at any time for re-evaluation. Prescriptions: Famotidine [Pepcid 20 mg Tablet] 20 mg PO BID #12 tablet Referrals: SANDEEP SINGLETON MD [Primary Care Provider] - Follow up tomorrow
[2019-07-24 18:43] LABS: APPEARANCE,URINE SLIGHTLY-CLOUDY; BILIRUBIN,URINE NEGATIVE (NEGATIVE); COLOR,URINE YELLOW; GLUCOSE, URINE NEGATIVE (NEGATIVE); KETONES,URINE NEGATIVE (NEGATIVE); LEUKOCYTE ESTERASE,URINE NEGATIVE (NEGATIVE); NITRITE,URINE NEGATIVE (NEGATIVE); PROTEIN,URINE NEGATIVE (NEGATIVE); URINE SPECIFIC GRAVITY 1.028; UROBILINOGEN,URINE NEGATIVE mg/dL (<2.0)
--- NOTE | 2019-07-24 19:36 | RADIOLOGY REPORT (SQ) ---
EXAM DESCRIPTION: CT ABD/PELVIS WITH IV ONLY COMPLETED DATE/TIME: 07/24/2019 7:26 pm REASON FOR STUDY: epigastric/umbilical pain COMPARISON: None. TECHNIQUE: CT scan of the abdomen and pelvis performed using helical scanning technique with dynamic intravenous contrast injection. No oral contrast. Images reviewed with lung, soft tissue, and bone windows. Reconstructed coronal and sagittal MPR images reviewed. Delayed images for evaluation of the urinary system also acquired. All images stored on PACS. All CT scanners at this facility use dose modulation, iterative reconstruction, and/or weight based d osing when appropriate to reduce radiation dose to as low as reasonably achievable (ALARA). [facility]: Dose Right [facility]: CareDose [facility]: Dose Right [facility]: Teradose 4D [facility]: [employer] CONTRAST TYPE AND DOSE: contrast/concentration: Isovue 350.00 mg/ml; Total Contrast Delivered: 100.0 ml; Total Saline Delivered: 72.0 ml RENAL FUNCTION: None required. The patient is less than 50 years old. RADIATION DOSE: CT Rad equipment meets quality standard of care and radiation dose reduction techniq ues were employed. CTDIvol: 19.1 - 20.7 mGy. DLP: 2291 mGy-cm.. LIMITATIONS: None. FINDINGS: LOWER CHEST: No significant findings. No nodules or infiltrates. LIVER: Normal size. No masses. No dilated ducts. SPLEEN: Normal size. No focal lesions. PANCREAS: No masses. No significant calcifications. No adjacent inflammation or peripancreatic fluid collections. Pancreatic duct not dilated. GALLBLADDER: No identified stones by CT criteria. No inflammatory changes to suggest cholecystitis. ADRENAL GLANDS: No significant masses or asymmetry. RIGHT KIDNEY AND URETER: No solid masses. No significant calcifications. No hydronephrosis or hyd roureter. LEFT KIDNEY AND URETER: No solid masses. No significant calcifications. No hydronephrosis or hydr oureter. AORTA AND VESSELS: No aneurysm. No dissection. Renal arteries, SMA, celiac without stenosis. RETROPERITONEUM: No retroperitoneal adenopathy, hemorrhage or masses. BOWEL AND PERITONEAL CAVITY: No masses or inflammatory changes. No free fluid or peritoneal masses. APPENDIX: Normal. PELVIS: No mass. No free fluid. Normal bladder. ABDOMINAL WALL: No masses. No hernias. BONES: No significant or acute findings. OTHER: No other significant finding. IMPRESSION: NO SIGNIFICANT OR ACUTE FINDING IN THE ABDOMEN OR PELVIS ON CT SCAN WITH IV CONTRAST. TECHNICAL DOCUMENTATION: JOB ID: [id number] Quality ID # [id number]: Final reports with documentation of one or more dose reduction techniques (e.g., Au tomated exposure control, adjustment of the mA and/or kV according to patient size, use of iterative reconstruction technique) 2010 [employer]- All Rights Reserved Reading location - IP/workstation name: [email or web address]
[2019-07-24] MEDS ORDERED: FAMOTIDINE INJ/PF 20 MG/2 ML SDV IV ONE (20:01)
[2019-07-24 20:07] VITALS: BP 121/68
--- NOTE | 2019-07-24 20:10 | ER Document Report ---
Doctor's Note Notes: 07/24/19 20:09 I was called in to examine the patient. Patient was seen in conjunction with the nurse practitioner. He complains of abdominal pain. He does have a history of irritable bowel syndrome. Patient's vitals are stable. Despite Dilaudid, morphine, Pepcid, the patient continues to have pain. His abdominal exam is tender but nonsurgical. CT scan of the abdomen pelvis is totally unremarkable. His vital signs are unremarkable. At this point, I do not have a clear etiology for his pain, but I do not suspect to be surgical. Please see the nurse practitioners note for remainder of the patient's ED course and disposition.
--- NOTE | 2019-07-24 20:53 | EKG REPORT ---
SEVERITY:- NORMAL ECG - SINUS RHYTHM : Confirmed by: Chilango Benz MD 24-Jul-2019 20:52:33
== END 2019-07-24 20:26 | disposition home or self-care (01) ==
LOC: ER 16:53
DX: R10.13 Epigastric pain (principal); R10.816 Epigastric abdominal tenderness; R09.89 Other specified symptoms and signs involving the circulatory and respiratory systems; I10 Essential (primary) hypertension; F41.9 Anxiety disorder, unspecified; Z79.899 Other long term (current) drug therapy; Z88.0 Allergy status to penicillin; Z88.2 Allergy status to sulfonamides; Z87.19 Personal history of other diseases of the digestive system
CPT/HCPCS: 93005; 36415; 83690; 85025; 80053; 81001; 71045; 74177; 93010; J3490; J2270; J1170; J2405; J7030; S0028; 96361; 96374; 96375; 99284

== ENCOUNTER 2019-09-11 16:08 | Emergency (ER) | payer SELFPAY ==
[2019-09-11] MEDS ORDERED: DIPH/PERTUSS(ACELL)/TETANUS VAC/PF 0.5 ML SYR (>=10YO) IM ONE (17:22)
--- NOTE | 2019-09-11 17:22 | ER Document Report ---
ED Medical Screen (RME) - General Chief Complaint: Syncope Stated Complaint: POSSIBLE SYNCOPE/MOUTH INJURY Time Seen by Provider: 09/11/19 17:11 Primary Care Provider: SANDEEP SINGLETON MD [Primary Care Provider] - Follow up as needed Mode of Arrival: Wheelchair Information source: Patient Notes: 48-year-old male presented to ED after a fall at home. States she came home after picking up the kids and found him at the door very confused altered and did not know where he was. She states she spoke with him about 2:00 and he was alert and oriented when she came home he did not know what was going on did not know why he had blood coming out of his mouth do not remember falling do not remember anything from the last time she talked to him. She states he does not have a history of seizures. states she came home at 4:00 and found him in this condition and brought him to the emergency room. She did not say anything to the people in the front that he was altered and all of the history she gave. Patient does not remember anything after 2:00. She does have a laceration to his left mouth. He does not have any facial droop, any palmar drift, is able to lift both arms appropriately. He is able to answer most questions but is a little slow on answers. He states that he has no memory since he talked to his and when she brought him to the emergency room I have greeted and performed a rapid initial assessment of this patient. A comprehensive ED assessment and evaluation of the patient, analysis of test results and completion of medical decision making process will be conducted by an additional ED providers. TRAVEL OUTSIDE OF THE [place] IN LAST 30 DAYS: No - Related Data Allergies/Adverse Reactions: Penicillins Allergy (Verified 09/29/17 16:51) Sulfa (Sulfonamide Antibiotics) Allergy (Verified 09/29/17 16:51) Past Medical History - Social History Family history: CVA, Hypertension - Past Medical History Cardiac Medical History: Reports: Hx Hypercholesterolemia, Hx Hypertension Neurological Medical History: Reports: Hx Migraine Renal/ Medical History: Denies: Hx Peritoneal Dialysis GI Medical History: Reports: Hx Irritable Bowel, Hx Colonoscopy - Diverticulosis, Hx Endoscopy. Denies: Hx Diverticulitis Musculoskeltal Medical History: Reports Hx Musculoskeletal Deformity, Reports Hx Musculoskeletal Trauma Psychiatric Medical History: Reports: Hx Anxiety - xanax daily Traumatic Medical History: Reports: Hx Fractures - Ribs posterior Past Surgical History: Reports: Hx Myringotomy, Other - Right eye - Immunizations Immunizations up to date: Yes Hx Diphtheria, Pertussis, Tetanus Vaccination: Yes Physical Exam - Vital signs Vitals: Temp Pulse Resp BP Pulse Ox 97.6 F 116 H 16 119/80 93 09/11/19 16:15 09/11/19 16:15 09/11/19 16:15 09/11/19 16:15 09/11/19 16:15 Course - Vital Signs Vital signs: Temp Pulse Resp BP Pulse Ox 97.6 F 116 H 16 119/80 93 09/11/19 16:15 09/11/19 16:15 09/11/19 16:15 09/11/19 16:15 09/11/19 16:15 Doctor's Discharge - Discharge Referrals: SANDEEP SINGLETON MD [Primary Care Provider] - Follow up as needed
--- NOTE | 2019-09-11 17:39 | RADIOLOGY REPORT (SQ) ---
EXAM DESCRIPTION: CT HEAD WITHOUT COMPLETED DATE/TIME: 09/11/2019 5:25 pm REASON FOR STUDY: Altered mental status facial injuries COMPARISON: 2018 TECHNIQUE: Axial images acquired through the brain without intravenous contrast. Images reviewed wi th bone, brain and subdural windows. Additional sagittal and coronal reconstructions were generated. Images stored on PACS. All CT scanners at this facility use dose modulation, iterative reconstruction, and/or weight based d osing when appropriate to reduce radiation dose to as low as reasonably achievable (ALARA). [facility]: Dose Right [facility]: CareDose [facility]: Dose Right [facility]: Teradose 4D [facility]: [employer] RADIATION DOSE: CT Rad equipment meets quality standard of care and radiation dose reduction techniq ues were employed. CTDIvol: 53.2 mGy. DLP: 1124 mGy-cm. mGy. LIMITATIONS: None. FINDINGS: VENTRICLES: Normal size and contour. CEREBRUM: No masses. No hemorrhage. No midline shift. No evidence for acute infarction. Normal gra y/white matter differentiation. No areas of low density in the white matter. CEREBELLUM: No masses. No hemorrhage. No alteration of density. No evidence for acute infarction. EXTRAAXIAL SPACES: No fluid collections. No masses. ORBITS AND GLOBE: No intra- or extraconal masses. Normal contour of globe without masses. CALVARIUM: No fracture. PARANASAL SINUSES: No fluid or mucosal thickening. SOFT TISSUES: No mass or hematoma. OTHER: No other significant finding. IMPRESSION: NORMAL BRAIN CT WITHOUT CONTRAST. EVIDENCE OF ACUTE STROKE: NO. COMMENT: Quality ID # 436: Final reports with documentation of one or more dose reduction techniques (e.g., Automated exposure control, adjustment of the mA and/or kV according to patient size, use of iterative reconstruction technique) TECHNICAL DOCUMENTATION: JOB ID: [id number] [employer]- All Rights Reserved Reading location - IP/workstation name: [email or web address]
--- NOTE | 2019-09-11 17:40 | RADIOLOGY REPORT (SQ) ---
EXAM DESCRIPTION: CHEST SINGLE VIEW COMPLETED DATE/TIME: 09/11/2019 5:25 pm REASON FOR STUDY: Altered mental status facial injuries COMPARISON: 07/24/2019. NUMBER OF VIEWS: One view. TECHNIQUE: Single frontal radiographic view of the chest acquired. LIMITATIONS: None. FINDINGS: LUNGS AND PLEURA: No opacities, masses or pneumothorax. No pleural effusion. MEDIASTINUM AND HILAR STRUCTURES: No masses. Contour normal. HEART AND VASCULAR STRUCTURES: Heart normal in size. Normal vasculature. BONES: No acute findings. HARDWARE: None in the chest. OTHER: No other significant finding. IMPRESSION: NO SIGNIFICANT RADIOGRAPHIC FINDING IN THE CHEST. TECHNICAL DOCUMENTATION: JOB ID: [id number] [employer]- All Rights Reserved Reading location - IP/workstation name: [email or web address]
[2019-09-11] MEDS ORDERED: LORAZEPAM INJ 2 MG/1 ML VIAL IV ONE (17:59)
--- NOTE | 2019-09-11 18:14 | ER Document Report ---
ED General - General Chief Complaint: Syncope Stated Complaint: POSSIBLE SYNCOPE/MOUTH INJURY Time Seen by Provider: 09/11/19 17:11 Primary Care Provider: SANDEEP STRINGER MD [Primary Care Provider] - Follow up as needed Mode of Arrival: Wheelchair TRAVEL OUTSIDE OF THE [place] IN LAST 30 DAYS: No - HPI Notes: is a 48-year-old male presenting for evaluation of transient altered mental status. 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 His came home and found him in an acute confusional state noted that he had blood in his mouth and an obvious cut on his tongue. He was unable to recall what happened. He complained of dull headache. also noted that he appeared diffusely diaphoretic when she first saw him. He does not have any known history of diabetes. She brought him here by private automobile. Patient has been treated by his primary care physician Dr. Stringer and has been on Zoloft and Ativan. He apparently has been on these medications greater than 30 days and ran out of the Ativan 2 days ago. Patient denies any history of head injury or seizures. No past history of syncope. No prior history of TIA or stroke. He denies abuse of drugs or alcohol and is a non-smoker. Pertinent prior history: PE tubes placed in both ears in childhood. No other surgery or hospitalizations. Past history of migraine headaches. History of hyperlipidemia currently not being treated with medication. He does not have any history of diabetes, hypertension, cardiac disease or any type of malignancy. - Related Data Allergies/Adverse Reactions: Penicillins Allergy (Verified 09/29/17 16:51) Sulfa (Sulfonamide Antibiotics) Allergy (Verified 09/29/17 16:51) Home Medications: Lisinopril, Rosuvastatin, Sertraline, Harris, Alprazolam Past Medical History - General Information source: Patient, Relative - Social History Smoking Status: Never Smoker Frequency of alcohol use: None Drug Abuse: None Occupation: Unemployed construction project engineer Lives with: Family Family History: Reviewed & Not Pertinent Patient has suicidal ideation: No Patient has homicidal ideation: No - Past Medical History Cardiac Medical History: Reports: Hx Hypercholesterolemia, Hx Hypertension Neurological Medical History: Reports: Hx Migraine Renal/ Medical History: Denies: Hx Peritoneal Dialysis GI Medical History: Reports: Hx Irritable Bowel, Hx Colonoscopy - Diverticulosis, Hx Endoscopy. Denies: Hx Diverticulitis Musculoskeletal Medical History: Reports Hx Musculoskeletal Deformity, Reports Hx Musculoskeletal Trauma Psychiatric Medical History: Reports: Hx Anxiety - xanax daily Traumatic Medical History: Reports: Hx Fractures - Ribs posterior Past Surgical History: Reports: Hx Myringotomy, Other - Right eye - Immunizations Immunizations up to date: Yes Hx Diphtheria, Pertussis, Tetanus Vaccination: Yes Review of Systems - Review of Systems Notes: Constitutional: Negative for fever. HENT: Negative for sore throat. Eyes: Negative for visual changes. Cardiovascular: Negative for chest pain. Respiratory: Negative for shortness of breath. Gastrointestinal: Negative for abdominal pain, vomiting or diarrhea. Genitourinary: Negative for dysuria. Musculoskeletal: Negative for back pain. Skin: Negative for rash. Neurological: As per HPI. 10 point ROS negative except as marked above and in HPI. Physical Exam - Vital signs Vitals: Temp Pulse Resp BP Pulse Ox 97.6 F 116 H 16 119/80 93 09/11/19 16:15 09/11/19 16:15 09/11/19 16:15 09/11/19 16:15 09/11/19 16:15 - Notes Notes: GENERAL: Well-developed well-nourished appearing anxious but otherwise in no [place] distress. SKIN: Good turgor no rashes. HEAD: Normocephalic atraumatic. EYES: PERRLA. EOMI. Conjunctivae and sclerae clear. EARS: CANALS AND TMS CLEAR. NOSE: CLEAR. MOUTH: Moist mucosa. Good dentition. No stridor or edema. No drooling. Patient has a 2.0 cm transverse superficial laceration of the anterior portion of his left tongue which is not actively bleeding at this time. Throat: Clear. NECK: Supple. No masses or thyromegaly. No adenopathy. Carotids 2+ without bruits. No JVD. BACK: Symmetrical without tenderness. CHEST: Respirations unlabored. Breath sounds clear and symmetrical. HEART: Regular rhythm. No murmur gallop or rub. ABDOMEN: Soft nontender without masses, organomegaly or rebound. Bowel sounds normally active. No bruits. GENITALIA: Deferred. EXTREMITIES: No edema. No calf tenderness. Cap refill less than 1.5 seconds. Dorsalis pedis and posterior tibial pulses 3+ and symmetrical. NEUROLOGICAL: GCS 15. Alert and oriented x3. Normal gait. Fluent speech. Cranial nerves II through XII intact. Sensorimotor and cerebellar normal. 1+ ankle clonus. Bilateral plantar withdrawal. PSYCHIATRIC: Anxious affect. Course - Re-evaluation Re-evalutation: 09/11/19 18:20 I find no evidence of acute CVA clinically. I think this man has probably experienced a benzodiazepine withdrawal seizure. Further lab evaluation is pending at this time. I will give him some IV Ativan to prevent another withdrawal seizure. I have discussed this with patient and his in some detail. - Vital Signs Vital signs: Temp Pulse Resp BP Pulse Ox 97.6 F 116 H 16 119/80 100 09/11/19 16:15 09/11/19 16:15 09/11/19 16:15 09/11/19 16:15 09/11/19 17:12 - Laboratory Result Diagrams: 09/11/19 17:50 09/11/19 17:50 Laboratory results interpreted by me: 09/11/19 09/11/19 17:50 17:50 WBC 21.9 H Seg Neuts % (Manual) 90 H Band Neutrophils % 2 L Lymphocytes % (Manual) 4 L Abs Neuts (Manual) 20.1 H Sodium 134.3 L Chloride 94 L BUN 26 H Glucose 142 H Calcium 10.3 H Total Protein 8.7 H Albumin 5.1 H - Diagnostic Test Radiology reviewed: Reports reviewed - Normal noncontrast head CT and chest x- ray per radiologist. - EKG Interpretation by Me Additional EKG results interpreted by me: 09/11/19 18:19 12-lead EKG from 1733 hrs. reviewed contemporaneously by me showing normal sinus rhythm with rate 92 and leftward axis -[address]/T wave changes. Normal intervals. Discharge - Discharge Clinical Impression: Seizure secondary to benzodiazepine with Condition: Stable Disposition: HOME, SELF-CARE Additional Instructions: Benzodiazepines You have been given a benzodiazepine medication. Examples of this type of medicine include Valium, Xanax, Librium, Ativan, and Halcion. Benzodiazepines have many uses. Medications of this type are used for inso mnia, anxiety, muscle spasms, seizures, and drug and alcohol withdrawal. Patients may experience withdrawal symptoms when these medications are suddenly discontinued after they have been taken for an extended period of time. The symptoms can range in severity from anxiety and mild shaking up to severe effects such as development of a generalized seizure. Discussed the risk and benefits of this medication with your doctor at earliest convenience. If it is agreed that she were to come off the medication at some point your doctor will need to outline a prescribed schedule for tapering the medication as opposed to suddenly discontinue it.Seizure You have had a seizure. Seizure disorders (epilepsy) of one sort or another affect about one out of 50 people. The seizure occurs because of abnormal electrical activity in the brain. Seizures may be due to drugs and alcohol, strokes, brain injury, or infection. In the most common form of epilepsy, no cause can be found. You will require further evaluation to determine the cause of your seizure, and to determine whether anti-seizure medication is required. This follow-up testing is important, so please call us if you encounter problems with scheduling of tests or appointments. YOU SHOULD NOT DRIVE until released to do so by your physician. The law requires that seizures be reported to the industrial truck driver's license bureau--a seizure while driving could be catastrophic. Call the doctor if seizures recur, or if you develop new symptoms such as fever, severe headache, stiff neck, confusion or increasing sleepiness, weakness or numbness, or visual problems. You also have a tongue laceration. Recommend soft diet. You will be started on clindamycin an oral antibiotic to reduce the likelihood of development of i nfection. Return here as needed for new or worsening symptoms: Any recurrence of seizures Pain that is worsening or unimproved Uncontrolled vomiting High fever or shaking chills Overall worsening Prescriptions: Clindamycin HCl 300 mg PO TID #30 capsule Alprazolam [Xanax 0.5 mg Tablet] 0.5 mg PO Q4H PRN 3 Days #20 tab PRN Reason: Referrals: SANDEEP STRINGER MD [Primary Care Provider] - Follow up as needed
[2019-09-11 18:17] LABS: HEMOGLOBIN 16.8 g/dL (13.5-17.0); MEAN CORPUSCULAR HEMOGLOBIN 31.2 pg (27.0-33.4); MEAN CORPUSCULAR HGB CONC 35.8 g/dL (32.0-36.0); MEAN CORPUSCULAR VOLUME 87 fl (80-97); PLATELET COUNT 294 10^3/uL (150-450); RED BLOOD COUNT 5.39 10^6/uL (4.35-5.55); RED CELL DISTRIBUTION WIDTH 13.7 % (11.5-14.0); WHITE BLOOD COUNT 21.9 10^3/uL (4.0-10.5)
[2019-09-11 18:24] LABS: INTERNATIONAL RATION (INR) 0.99; PROTHROMBIN TIME 13.1 SEC (11.4-15.4)
[2019-09-11 18:25] LABS: PARTIAL THROMBOPLASTIN TIME 25.5 SEC (23.5-35.8)
[2019-09-11 18:39] LABS: ALBUMIN 5.1 g/dL (3.5-5.0); ALKALINE PHOSPHATASE 82 U/L (38-126); ANION GAP 15 (5-19); ASPARTATE AMINO TRANSFERASE 30 U/L (17-59); BILIRUBIN,DIRECT 0.1 mg/dL (0.0-0.4); BILIRUBIN,TOTAL 0.8 mg/dL (0.2-1.3); BLOOD UREA NITROGEN 26 mg/dL (7-20); CALCIUM 10.3 mg/dL (8.4-10.2); CARBON DIOXIDE 25 mmol/L (22-30); CHLORIDE 94 mmol/L (98-107); GLUCOSE 142 mg/dL (75-110); POTASSIUM 3.6 mmol/L (3.6-5.0); TOTAL PROTEIN 8.7 g/dL (6.3-8.2)
[2019-09-11 18:41] LABS: ABSOLUTE LYMPHOCYTES# (MANUAL) 0.9 10^3/uL (0.5-4.7); ABSOLUTE MONOCYTES # (MANUAL) 0.9 10^3/uL (0.1-1.4); BAND NEUTROPHILS % (MANUAL) 2 % (3-5); BASOPHILS % (MANUAL) 0 % (0-2); EOSINOPHILS % (MANUAL) 0 % (0-6); LYMPHOCYTES % (MANUAL) 4 % (13-45); MONOCYTES % (MANUAL) 4 % (3-13); PLATELET COMMENT ADEQUATE; RBC MORPHOLOGY COMMENT NORMO-CYTIC/CHROMIC; SEGMENTED NEUTROPHILS % (MAN) 90 % (42-78); TOTAL CELLS COUNTED 100
[2019-09-11 18:47] LABS: ALCOHOL < 10 mg/dL (NONE DETECTED)
[2019-09-11] MEDS ORDERED: NORMAL SALINE 1000 ML 1,000 ML IV ONE (19:26)
[2019-09-11] MEDS ORDERED: LORAZEPAM 1 MG TABLET PO PRN (20:23)
[2019-09-11 20:56] VITALS: BP 144/91
[2019-09-11 21:11] LABS: APPEARANCE,URINE CLOUDY; BILIRUBIN,URINE NEGATIVE (NEGATIVE); COLOR,URINE YELLOW; GLUCOSE, URINE NEGATIVE (NEGATIVE); KETONES,URINE NEGATIVE (NEGATIVE); LEUKOCYTE ESTERASE,URINE NEGATIVE (NEGATIVE); NITRITE,URINE NEGATIVE (NEGATIVE); PROTEIN,URINE 30 mg/dL (NEGATIVE); URINE SPECIFIC GRAVITY 1.023; UROBILINOGEN,URINE NEGATIVE mg/dL (<2.0)
[2019-09-11 21:19] LABS: URINE AMPHETAMINES SCREEN NEGATIVE; URINE BARBITURATES SCREEN NEGATIVE; URINE BENZODIAZEPINES SCREEN UNCONFIRMED POSITIVE; URINE COCAINE SCREEN NEGATIVE; URINE MARIJUANA (THC) SCREEN NEGATIVE; URINE METHADONE SCREEN NEGATIVE; URINE PHENCYCLIDINE SCREEN NEGATIVE
--- NOTE | 2019-09-12 12:59 | EKG REPORT ---
SEVERITY:- OTHERWISE NORMAL ECG - SINUS RHYTHM BORDERLINE LEFT AXIS DEVIATION : Confirmed by: Frida Wynne 12-Sep-2019 12:57:49
== END 2019-09-11 21:19 | disposition home or self-care (01) ==
LOC: ER 16:08
DX: F19.939 Other psychoactive substance use, unspecified with withdrawal, unspecified (principal); G40.89 Other seizures; R55 Syncope and collapse; R41.82 Altered mental status, unspecified; Z23 Encounter for immunization
CPT/HCPCS: 93005; 99284; 96361; 90471; 96374; 36415; 80307 ×2; 85025; 85610; 85730; 80053; 81001; 84484; 83880; 71045; 70450; 90715; 93010; J2060; J7030

== ENCOUNTER → 2020-01-09 | Outpatient (CLI) | payer SELFPAY ==
[2020-01-09 12:14] LABS: URINE AMPHETAMINES SCREEN NEGATIVE; URINE BARBITURATES SCREEN NEGATIVE; URINE COCAINE SCREEN NEGATIVE; URINE MARIJUANA (THC) SCREEN NEGATIVE; URINE METHADONE SCREEN NEGATIVE; URINE PHENCYCLIDINE SCREEN NEGATIVE
[2020-01-09 12:18] LABS: ANION GAP 9 (5-19); BLOOD UREA NITROGEN 18 mg/dL (7-20); CALCIUM 9.9 mg/dL (8.4-10.2); CARBON DIOXIDE 29 mmol/L (22-30); CHLORIDE 98 mmol/L (98-107); CHOLESTEROL 312.53 mg/dL (0-200); GLUCOSE 115 mg/dL (75-110); POTASSIUM 4.8 mmol/L (3.6-5.0); TRIGLYCERIDES 273 mg/dL (<150)
[2020-01-09 12:29] LABS: DIRECT LDL 237 mg/dL (<100)
[2020-01-09 12:31] LABS: VLDL CHOLESTEROL 54.6 mg/dL (10-31)
[2020-01-09 13:17] LABS: URINE BENZODIAZEPINES SCREEN UNCONFIRMED POSITIVE
== END ==
LOC: OD 10:46
PROVIDERS: ATTEND Family Medicine
DX: E78.5 Hyperlipidemia, unspecified (principal); I10 Essential (primary) hypertension; M15.0 Primary generalized (osteo)arthritis; Z79.899 Other long term (current) drug therapy
CPT/HCPCS: 80361; 36415; 84443; 80048; 80307; 83036; 80061; G0480 ×2; 80365

== ENCOUNTER 2020-07-02 21:09 | Emergency (ER) | payer SELFPAY ==
[2020-07-02 22:02] LABS: ABSOLUTE BASOPHILS # (AUTO) 0.1 10^3/uL (0.0-0.2); EOSINOPHILS % (AUTO) 0.1 % (0-6); MEAN CORPUSCULAR HGB CONC 35.3 g/dL (32.0-36.0); TOTAL CELLS COUNTED % (AUTO) 100 %; WHITE BLOOD COUNT 16.5 10^3/uL (4.0-10.5)
--- NOTE | 2020-07-02 22:04 | RADIOLOGY REPORT (SQ) ---
CHEST X-RAY 1 VIEW on 07/02/2020 at 9:34 PM CLINICAL INDICATION: Chest pain COMPARISON: 09/11/2019 FINDINGS: The lungs are clear. A few wires are noted projecting over the chest. Cardiac, hilar and mediastinal contours are within normal limits. Pulmonary vascularity is within normal limits. No bony abnormality is noted. IMPRESSION: No active disease.
[2020-07-02 22:06] LABS: ABSOLUTE LYMPHOCYTES (AUTO) 2.4 10^3/uL (0.5-4.7); BASOPHILS % (AUTO) 0.3 % (0-2); HEMATOCRIT 44.4 % (37.9-51.0); HEMOGLOBIN 15.7 g/dL (13.5-17.0); LYMPHOCYTES % (AUTO) 14.6 % (13-45); MEAN CORPUSCULAR HEMOGLOBIN 31.2 pg (27.0-33.4); MEAN CORPUSCULAR VOLUME 89 fl (80-97); MONOCYTES % (AUTO) 6.2 % (3-13); PLATELET COUNT 501 10^3/uL (150-450); RED BLOOD COUNT 5.02 10^6/uL (4.35-5.55); RED CELL DISTRIBUTION WIDTH 14.2 % (11.5-14.0); SEGMENTED NEUTROPHILS % (AUTO) 78.8 % (42-78)
[2020-07-02] MEDS ORDERED: KETOROLAC TROMETHAMINE INJ/PF 30 MG/1 ML SDV IV ONE (22:12)
[2020-07-02] MEDS ORDERED: HYDROXYZINE PAMOATE 25 MG CAPSULE PO ONE (22:12)
--- NOTE | 2020-07-02 22:12 | ER Document Report ---
ED General - General Chief Complaint: Anxiety Stated Complaint: CHEST PAIN Time Seen by Provider: 07/02/20 21:53 Primary Care Provider: [facility] [Outside] - Follow up as needed SANDEEP SINGLETON MD [Primary Care Provider] - Follow up as needed Mode of Arrival: Stretcher Information source: Patient Notes: 49-year-old male past medical history significant for hypertension, hyperlipidemia, seizure disorder, IBS, chronic back pain, migraines, anxiety, diverticulitis was brought to the emergency room via EMS initially complaining of chest pain. Patient was given aspirin and nitroglycerin in route by EMS with relief of his chest pain. Patient states his primary care physician discontinued his alprazolam and hydrocodone as he was abusing them. States he has not had any of his Toprol exam in a week and has not had any of his hydrocodone for 2 weeks. States he feels dehydrated. Has pain all over his body. Has not taken any other medications for his symptoms. Denies any shortness of breath, no nausea, no vomiting, no diaphoresis. Denies any COVID- 19 exposure. TRAVEL OUTSIDE OF THE [place] IN LAST 30 DAYS: No - Related Data Allergies/Adverse Reactions: Penicillins Allergy (Verified 09/29/17 16:51) Sulfa (Sulfonamide Antibiotics) Allergy (Verified 09/29/17 16:51) Past Medical History - General Information source: Patient, Relative - Social History Smoking Status: Former Smoker Chew tobacco use (# tins/day): No Frequency of alcohol use: Rare Drug Abuse: None Family History: CAD Patient has homicidal ideation: No - Past Medical History Cardiac Medical History: Reports: Hx Hypercholesterolemia, Hx Hypertension Neurological Medical History: Reports: Hx Migraine Renal/ Medical History: Denies: Hx Peritoneal Dialysis GI Medical History: Reports: Hx Irritable Bowel, Hx Colonoscopy - Diverticulosis, Hx Endoscopy. Denies: Hx Diverticulitis Musculoskeletal Medical History: Reports Hx Musculoskeletal Deformity, Reports Hx Musculoskeletal Trauma Psychiatric Medical History: Reports: Hx Anxiety - xanax daily Traumatic Medical History: Reports: Hx Fractures - Ribs posterior Past Surgical History: Reports: Hx Myringotomy, Other - Right eye - Immunizations Immunizations up to date: Yes Hx Diphtheria, Pertussis, Tetanus Vaccination: Yes Review of Systems - Review of Systems Constitutional: No symptoms reported EENT: No symptoms reported Cardiovascular: Chest pain Respiratory: No symptoms reported Gastrointestinal: No symptoms reported Genitourinary: No symptoms reported Skin: No symptoms reported Neurological/Psychological: No symptoms reported -: Yes All other systems reviewed and negative Physical Exam - Vital signs Vitals: Temp 98.2 F 07/02/20 21:09 - Notes Notes: GENERAL: Mild acute distress, non-toxic appearance. HEAD: Normal with no signs of head trauma. EYES: PERRLA, EOMI, conjunctiva normal, no discharge. EARS: Hearing grossly intact. NOSE: Normal. THROAT: Oropharynx is normal. NECK: Normal range of motion, no tenderness, supple, no lymphadenopathy, No adenopathy, no JVD. CHEST: Clear breath sounds bilaterally. No wheezes, rales, or rhonchi. CARDIAC: Regular rate and rhythm. S1 and S2, without murmurs, gallops, or rubs. VASCULAR: No Edema. Peripheral pulses normal and equal in all extremities. ABDOMEN: Normal and soft with no tenderness, no masses or pulsatile masses. No organomegaly. Positive bowel sounds x4. No CVA tenderness noted bilaterally. GASTROINTESTINAL: Bowel sounds normal LYMPATHTIC: No lymphadenopathy noted. MUSCULOSKELETAL: Good range of motion of all major joints. Extremities without clubbing, cyanosis or edema. NEUROLOGICAL: Alert and oriented x 3. No focal sensory or strength deficits. Speech normal. Follows commands appropriately. PSYCHIATRIC: Normal Affect, judgement and mood. SKIN: Normal appearance with no rashes or lesions. Course - Re-evaluation Re-evalutation: 07/02/20 22:21 HEART Score: History 0 ECG 0 Age 1 Risk Factors 2 Troponin 0 Total: 3 If HEART score is = 3 AND both tronponin measurments are normal, the 30 day risk of a major adverse cardiac event (all-cause mortality, myocardia infarction or need for coronary revscularization) is < 1% (Sensitivity 100%, NPV 100%). Chest pain in a patient without evidence of cardiac or other serious etiology on workup today. I discussed with patient that, based on their age, risk factors and emergency department testing today, the likelihood that their symptoms are related to a heart attack is very low (estimated risk of heart attack or over the next 30 days of less than 1%). The patient demonstrates decision making capacity and has verbalized an understanding of these risks to me. Based on this, the patient has chosen to follow-up as an outpatient. Usual chest pain return precautions reviewed. The patient states understanding and agreement with this plan. Patient is obviously anxious. Did state that he took an old anxiety medication yesterday but that he does not remember the name of it. Blood pressure is jesus vated states he took his blood pressure medication as prescribed. 07/02/20 22:27 07/03/20 02:27 Patient is resting comfortably reviewed all lab results with patient. Vital signs are stable. Patient is concerned about still having possible withdrawal symptoms. Counseled patient that since he took his medications over 2 weeks ago it is not likely that he is still having withdrawal symptoms. Patient's anxiety got better with hydroxyzine. Pain was decreased with IV Toradol. He was counseled on the importance of outpatient follow-up with his primary care physician for management of his chronic anxiety and chronic pain. Discussed possibly going to a rehab facility for his abuse of narcotics. Case was staffed with my ED attending Dr. Grace, he is stable to be discharged home. Spent co nsiderable amount of time with patient discussing discharge medications, rehab questions, signs and symptoms of withdrawal. Patient was given strict return to the emergency room guidelines. Return for any new or worsening symptoms. All questions were answered. Patient verbalized understanding and agrees with plan of care. contracts for safety. 07/03/20 02:27 07/03/20 02:29 07/03/20 02:33 07/03/20 16:34 - Vital Signs Vital signs: Temp Pulse Resp BP Pulse Ox 98.6 F 84 19 129/74 H 98 07/03/20 03:06 07/03/20 03:06 07/03/20 03:06 07/03/20 03:06 07/03/20 03:06 - Laboratory Result Diagrams: 07/02/20 21:30 07/02/20 21:30 Laboratory results interpreted by me: 07/02/20 07/02/20 21:30 21:30 WBC 16.5 H RDW 14.2 H Plt Count 501 H Absolute Neuts (auto) 13.0 H Seg Neutrophils % 78.8 H Sodium 130.9 L Chloride 94 L Glucose 128 H - Diagnostic Test Radiology reviewed: Reports reviewed - EKG Interpretation by Me EKG shows normal: Sinus rhythm Additional EKG results interpreted by me: 07/02/20 22:20 EKG was interpreted by ER physician Dr. Peterson No acute STEMI Normal sinus rhythm Rate of 81 Normal axis Borderline T wave abnormalities. Unchanged from previous EKG of 09/11/2019 Discharge - Discharge Clinical Impression: Anxiety, Substance abuse Chronic pain Qualifiers: Chronic pain type: other chronic pain Qualified Code(s): G89.29 - Other chronic pain Condition: Stable Disposition: HOME, SELF-CARE Instructions: Anxiety (OM), Narcotic Abuse (OM) Additional Instructions: Take hydroxyzine as prescribed. Tylenol and or Motrin as needed for your pain. Outpatient follow-up with your primary care physician for management of your substance abuse. Recommend following up with [facility] for help with substance abuse. Return to the emergency room for any new or worsening symptoms. Prescriptions: Hydroxyzine Pamoate [Vistaril 50 mg Capsule] 50 mg PO Q6H #30 capsule Referrals: SANDEEP SINGLETON MD [Primary Care Provider] - Follow up as needed [facility] [Outside] - Follow up as needed
[2020-07-02 22:16] LABS: ALBUMIN 4.9 g/dL (3.5-5.0); ALKALINE PHOSPHATASE 78 U/L (38-126); ANION GAP 15 (5-19); ASPARTATE AMINO TRANSFERASE 26 U/L (17-59); BILIRUBIN,DIRECT 0.1 mg/dL (0.0-0.4); BILIRUBIN,TOTAL 1.1 mg/dL (0.2-1.3); BLOOD UREA NITROGEN 16 mg/dL (7-20); CALCIUM 10.2 mg/dL (8.4-10.2); CARBON DIOXIDE 22 mmol/L (22-30); CHLORIDE 94 mmol/L (98-107); CREATINE KINASE 125 U/L (55-170); GLUCOSE 128 mg/dL (75-110); POTASSIUM 3.8 mmol/L (3.6-5.0); TOTAL PROTEIN 8.1 g/dL (6.3-8.2)
[2020-07-02] MEDS ORDERED: NORMAL SALINE 1000 ML 1,000 ML IV ONE (22:20)
[2020-07-02 22:26] LABS: CREATINE KINASE MB 0.37 ng/mL (<4.55); TROPONIN I < 0.012 ng/mL
[2020-07-02 23:17] LABS: APPEARANCE,URINE SLIGHTLY-CLOUDY; BILIRUBIN,URINE NEGATIVE (NEGATIVE); COLOR,URINE YELLOW; GLUCOSE, URINE NEGATIVE (NEGATIVE); KETONES,URINE NEGATIVE (NEGATIVE); LEUKOCYTE ESTERASE,URINE NEGATIVE (NEGATIVE); NITRITE,URINE NEGATIVE (NEGATIVE); PROTEIN,URINE NEGATIVE (NEGATIVE); URINE SPECIFIC GRAVITY 1.026; UROBILINOGEN,URINE NEGATIVE mg/dL (<2.0)
[2020-07-02 23:29] LABS: URINE AMPHETAMINES SCREEN NEGATIVE; URINE BARBITURATES SCREEN NEGATIVE; URINE COCAINE SCREEN NEGATIVE; URINE MARIJUANA (THC) SCREEN NEGATIVE; URINE METHADONE SCREEN NEGATIVE; URINE PHENCYCLIDINE SCREEN NEGATIVE
[2020-07-02 23:32] LABS: URINE BENZODIAZEPINES SCREEN UNCONFIRMED POSITIVE
[2020-07-03 06:32] VITALS: BP 129/74
--- NOTE | 2020-07-03 19:41 | EKG REPORT ---
SEVERITY:- BORDERLINE ECG - SINUS RHYTHM BORDERLINE T WAVE ABNORMALITIES : Confirmed by: Marlene Tan MD 03-Jul-2020 19:40:08
== END 2020-07-03 03:06 | disposition home or self-care (01) ==
LOC: ER 21:09
DX: F41.9 Anxiety disorder, unspecified (principal); F19.10 Other psychoactive substance abuse, uncomplicated; R07.9 Chest pain, unspecified; I10 Essential (primary) hypertension; E78.5 Hyperlipidemia, unspecified; G89.29 Other chronic pain; Z88.0 Allergy status to penicillin; Z88.2 Allergy status to sulfonamides
CPT/HCPCS: 93005; 99285; 96361; 96374; 36415; 82553; 82550; 85025; 80053; 81001; 84484; 80307; 71045; 93010; J1885; J7030

== ENCOUNTER 2020-07-03 18:58 | Emergency (ER) | payer SELFPAY ==
[2020-07-03 20:42] LABS: ALBUMIN 4.7 g/dL (3.5-5.0); ALKALINE PHOSPHATASE 57 U/L (38-126); ASPARTATE AMINO TRANSFERASE 41 U/L (17-59); BILIRUBIN,DIRECT 0.2 mg/dL (0.0-0.4); BLOOD UREA NITROGEN 22 mg/dL (7-20); CALCIUM 9.8 mg/dL (8.4-10.2); CARBON DIOXIDE 16 mmol/L (22-30); GLUCOSE 136 mg/dL (75-110); POTASSIUM 3.5 mmol/L (3.6-5.0)
--- NOTE | 2020-07-03 20:43 | ER Document Report ---
ED General - General Chief Complaint: Probable Seizure Stated Complaint: POSSIBLE SEIZURE Time Seen by Provider: 07/03/20 20:43 Primary Care Provider: SANDEEP SINGLETON MD [Primary Care Provider] - Follow up as needed TRAVEL OUTSIDE OF THE [place] IN LAST 30 DAYS: No - HPI Notes: 49-year-old male presents with possible seizure at home. Patient's states initially "you know why I'm here", "you can see in the chart", then further clarifies he is addicted to Xanax and Hornbeck and is currently out of these medications. Patient states that he "had a seizure and all the stuff at my sis ter's house". Per the EMS run sheet apparently the seizure lasted less than a minute and he did receive Versed. Patient states that he is queasy and he has not eaten any food in 4 days, however he has been drinking soda and water. He states that he would like to go to treatment. He states that he would like to go to a place that he is not able to leave from. He has not made any attempts to reach out to treatment centers, he states that he would like us to do that for him and again states that he would like to be sent to a place that he will not be able to check out from. - Related Data Allergies/Adverse Reactions: Penicillins Allergy (Verified 09/29/17 16:51) Sulfa (Sulfonamide Antibiotics) Allergy (Verified 09/29/17 16:51) Past Medical History - General Information source: Patient - Social History Smoking Status: Unknown if Ever Smoked Chew tobacco use (# tins/day): No Frequency of alcohol use: None Drug Abuse: Prescription drugs Family History: CAD Patient has homicidal ideation: No - Past Medical History Cardiac Medical History: Reports: Hx Hypercholesterolemia, Hx Hypertension Neurological Medical History: Reports: Hx Migraine Renal/ Medical History: Denies: Hx Peritoneal Dialysis GI Medical History: Reports: Hx Irritable Bowel, Hx Colonoscopy - Diverticulosis, Hx Endoscopy. Denies: Hx Diverticulitis Musculoskeletal Medical History: Reports Hx Musculoskeletal Deformity, Reports Hx Musculoskeletal Trauma Psychiatric Medical History: Reports: Hx Anxiety - xanax daily Traumatic Medical History: Reports: Hx Fractures - Ribs posterior Past Surgical History: Reports: Hx Myringotomy, Other - Right eye - Immunizations Immunizations up to date: Yes Hx Diphtheria, Pertussis, Tetanus Vaccination: Yes Review of Systems - Review of Systems Constitutional: denies: Fever EENT: denies: Double vision Cardiovascular: denies: Chest pain Respiratory: denies: Short of breath Gastrointestinal: denies: Abdominal pain Genitourinary: No symptoms reported Male Genitourinary: No symptoms reported Musculoskeletal: No symptoms reported Skin: No symptoms reported Hematologic/Lymphatic: No symptoms reported Neurological/Psychological: See HPI Physical Exam - Vital signs Vitals: Temp 98.6 F 07/03/20 18:58 - General General appearance: Appears well, Alert In distress: None - HEENT Head: Normocephalic, Atraumatic Eyes: No: Scleral icterus Extraocular movements intact: Yes Pupils: PERRL Mucous membranes: Moist - Respiratory Breath sounds: Normal - Cardiovascular Rhythm: Regular Heart sounds: Normal auscultation Normal capillary refill: Yes - Abdominal Inspection: Obese Tenderness: Nontender - Extremities General upper extremity: Normal ROM General lower extremity: Normal ROM. No: Edema - Neurological Neuro grossly intact: Yes Cognition: Normal Orientation: AAOx4 [place] Coma Scale Eye Opening: Spontaneous [place] Coma Scale Verbal: Oriented [place] Coma Scale Motor: Obeys Commands [place] Coma Scale Total: 15 Cranial nerves: Normal Cerebellar coordination: Normal Motor strength normal: LUE, RUE, LLE, RLE Sensory: Normal - Psychological Associated symptoms: Flat affect - Skin Skin Temperature: Warm Course - Re-evaluation Re-evalutation: 49-year-old male here for reported seizure at his sister's house, he did receive Versed via EMS. Patient states that the main reason he is here as he is wanting to go to treatment, he is requesting multiple times for the emergency department to send him to a treatment facility. He is prescribed Hornbeck and Xanax, apparently took a months worth of medication in 3 days and has been without. He was seen in the emergency department last night for same. It is possible that a seizure has occurred, he currently is neurologically intact without focal deficits, does not appear to be postictal. Will give a dose of Klonopin for long-acting control. Intend to medically clear in order for him to go to treatment. 07/03/20 23:48 Leukocytosis present, likely reactionary given that there is no appreciable left shift. The low bands and lymphocytes have been seen on previous values. Mild hyponatremia and hypochloremia, fluids have been given. Low CO2, likely reflecting seizure status. SYDNEY present, again has received fluids and has had appropriate urinary output. 07/04/20 01:10 Patient has remained stable while in the ED. No seizure activity. He has tolerated p.o. [facility] has an available male bed. Patient has been updated about plan for ED discharge and for him to go over to [place] for treatment. Stable at time of discharge. - Vital Signs Vital signs: Temp Pulse Resp BP Pulse Ox 98.6 F 22 H 127/59 H 92 07/03/20 18:58 07/04/20 01:01 07/04/20 01:01 07/04/20 01:01 - Laboratory Result Diagrams: 07/03/20 19:53 07/03/20 19:53 Laboratory results interpreted by me: 07/03/20 07/03/20 19:53 19:53 WBC 26.5 H Plt Count 466 H Band Neutrophils % 1 L Lymphocytes % (Manual) 9 L Abs Neuts (Manual) 20.9 H Abs Monocytes (Manual) 3.2 H Sodium 131.2 L Potassium 3.5 L Chloride 92 L Carbon Dioxide 16 L Anion Gap 23 H BUN 22 H Creatinine 1.60 H Est GFR ( Amer) 56 L Est GFR (MDRD) Non-Af 46 L Glucose 136 H Magnesium 4.0 H Discharge - Discharge Clinical Impression: Benzodiazepine abuse, continuous Opiate addiction Qualifiers: Substance use status: uncomplicated Qualified Code(s): F11.20 - Opioid dependence, uncomplicated Disposition: PSYCH HOSP/UNIT Additional Instructions: Please go directly to [place] for substance abuse treatment. Return to the emergency department for any concerning worsening symptoms. Referrals: SANDEEP SINGLETON MD [Primary Care Provider] - Follow up as needed
[2020-07-03 20:44] LABS: ALCOHOL < 10 mg/dL (NONE DETECTED)
[2020-07-03 20:47] LABS: ANION GAP 23 (5-19); CHLORIDE 92 mmol/L (98-107)
[2020-07-03] MEDS ORDERED: CLONAZEPAM 1 MG TABLET PO ONE (20:55)
[2020-07-03] MEDS ORDERED: RINGERS SOLUTION,LACTATED 1,000 ML IV ONE (20:55)
[2020-07-03] MEDS ORDERED: ONDANSETRON HCL INJ/PF 4 MG/2 ML SDV IV ONE (20:56)
[2020-07-03 21:05] LABS: HEMATOCRIT 40.7 % (37.9-51.0); HEMOGLOBIN 14.1 g/dL (13.5-17.0); MEAN CORPUSCULAR HEMOGLOBIN 30.9 pg (27.0-33.4); MEAN CORPUSCULAR HGB CONC 34.5 g/dL (32.0-36.0); MEAN CORPUSCULAR VOLUME 89 fl (80-97); PLATELET COUNT 466 10^3/uL (150-450); RED BLOOD COUNT 4.56 10^6/uL (4.35-5.55); RED CELL DISTRIBUTION WIDTH 13.9 % (11.5-14.0); WHITE BLOOD COUNT 26.5 10^3/uL (4.0-10.5)
[2020-07-03 21:28] LABS: ABSOLUTE LYMPHOCYTES# (MANUAL) 2.4 10^3/uL (0.5-4.7); ABSOLUTE MONOCYTES # (MANUAL) 3.2 10^3/uL (0.1-1.4); BAND NEUTROPHILS % (MANUAL) 1 % (3-5); BASOPHILS % (MANUAL) 0 % (0-2); EOSINOPHILS % (MANUAL) 0 % (0-6); LYMPHOCYTES % (MANUAL) 9 % (13-45); MONOCYTES % (MANUAL) 12 % (3-13); RBC MORPHOLOGY COMMENT NORMO-CYTIC/CHROMIC; SEGMENTED NEUTROPHILS % (MAN) 78 % (42-78); TOTAL CELLS COUNTED 100
[2020-07-03 21:29] LABS: PLATELET COMMENT INCREASED
[2020-07-04 01:24] VITALS: BP 127/59
== END 2020-07-04 01:25 ==
LOC: ER 18:58
DX: F11.20 Opioid dependence, uncomplicated (principal); F19.10 Other psychoactive substance abuse, uncomplicated; E78.00 Pure hypercholesterolemia, unspecified; I10 Essential (primary) hypertension; Z88.0 Allergy status to penicillin; Z88.2 Allergy status to sulfonamides
CPT/HCPCS: 99284; 96361; 96374; 36415; 82962; 80307; 83735; 85025; 80053; J2405; J7120

== ENCOUNTER 2020-07-09 07:34 | Emergency (ER) | payer SELFPAY ==
[2020-07-09 08:27] LABS: ABSOLUTE BASOPHILS # (AUTO) 0.1 10^3/uL (0.0-0.2); ABSOLUTE LYMPHOCYTES (AUTO) 2.1 10^3/uL (0.5-4.7); ABSOLUTE NEUT (AUTO) 8.1 10^3/uL (1.7-8.2); BASOPHILS % (AUTO) 1.1 % (0-2); EOSINOPHILS % (AUTO) 0.3 % (0-6); HEMATOCRIT 43.5 % (37.9-51.0); HEMOGLOBIN 15.1 g/dL (13.5-17.0); LYMPHOCYTES % (AUTO) 18.2 % (13-45); MEAN CORPUSCULAR HEMOGLOBIN 30.7 pg (27.0-33.4); MEAN CORPUSCULAR HGB CONC 34.7 g/dL (32.0-36.0); MEAN CORPUSCULAR VOLUME 89 fl (80-97); MONOCYTES % (AUTO) 9.1 % (3-13); PLATELET COUNT 332 10^3/uL (150-450); RED BLOOD COUNT 4.92 10^6/uL (4.35-5.55); RED CELL DISTRIBUTION WIDTH 13.7 % (11.5-14.0); SEGMENTED NEUTROPHILS % (AUTO) 71.3 % (42-78); TOTAL CELLS COUNTED % (AUTO) 100 %; WHITE BLOOD COUNT 11.4 10^3/uL (4.0-10.5)
--- NOTE | 2020-07-09 08:30 | ER Document Report ---
ED General - General Mode of Arrival: Medic Information source: Patient, Emergency Med Personnel TRAVEL OUTSIDE OF THE [place] IN LAST 30 DAYS: No <TOMEKA BUCK - Last Filed: 07/09/20 10:46> <MARIA R MATTHEWS - Last Filed: 07/09/20 18:49> <JENNIFER MARIN - Last Filed: 07/09/20 20:09> - General Chief Complaint: Possible Overdose Stated Complaint: RECTAL PAIN/PSYCH Time Seen by Provider: 07/09/20 08:13 Primary Care Provider: [facility] [Outside] - Follow up as needed SANDEEP SINGLETON MD [Primary Care Provider] - Follow up as needed Notes: 49-year-old male patient presenting to the emergency department via EMS. EMS reports they were called out to the house for rectal pain and rectal bleeding. Upon arrival they found the patient to have empty medication bottles near him. He apparently abuses oxycodone and Xanax. He denies any recent overdose but states he is taking more than he is supposed to and has run out of them prematurely. The patient reports to me he has a history of hemorrhoids and does have some rectal pain but this is nothing new. Patient denies any active suicidal thoughts but states he has told his recently that he has thought of hurting himself. Patient endorses anxiety and guilt, keeps asking if we can let his and children know he is very sorry. (TOMEKA BUCK) - Related Data Allergies/Adverse Reactions: Penicillins Allergy (Verified 07/09/20 08:19) Sulfa (Sulfonamide Antibiotics) Allergy (Verified 07/09/20 08:19) Past Medical History - General Information source: Patient, Emergency Med Personnel - Social History Smoking Status: Never Smoker Chew tobacco use (# tins/day): No Frequency of alcohol use: None Drug Abuse: Prescription drugs Family History: CAD - Past Medical History Cardiac Medical History: Reports: Hx Hypercholesterolemia, Hx Hypertension Neurological Medical History: Reports: Hx Migraine Renal/ Medical History: Denies: Hx Peritoneal Dialysis GI Medical History: Reports: Hx Irritable Bowel, Hx Colonoscopy - Diverticulosis, Hx Endoscopy. Denies: Hx Diverticulitis Musculoskeletal Medical History: Reports Hx Musculoskeletal Deformity, Reports Hx Musculoskeletal Trauma Psychiatric Medical History: Reports: Hx Anxiety - xanax daily, Hx Depression Traumatic Medical History: Reports: Hx Fractures - Ribs posterior Past Surgical History: Reports: Hx Myringotomy, Other - Right eye - Immunizations Immunizations up to date: Yes Hx Diphtheria, Pertussis, Tetanus Vaccination: Yes <TOMEKA BUCK - Last Filed: 07/09/20 10:46> Review of Systems - Review of Systems -: Yes ROS unobtainable due to patient's medical condition <TOMEKA BUCK - Last Filed: 07/09/20 10:46> Physical Exam <TOMEKA BUCK - Last Filed: 07/09/20 10:46> - Vital signs Vitals: Resp Pulse Ox 21 H 88 L 07/09/20 07:58 07/09/20 07:58 - Notes Notes: PHYSICAL EXAMINATION: GENERAL: Well-appearing, well-nourished and in no acute distress. HEAD: Atraumatic, normocephalic. EYES: Pupils equal round and reactive to light, extraocular movements intact, sclera anicteric, conjunctiva are normal. ENT: Nares patent, oropharynx clear without exudates. Moist mucous membranes. NECK: Normal range of motion, supple without lymphadenopathy LUNGS: Breath sounds clear to auscultation bilaterally and equal. No wheezes rales or rhonchi. HEART: Regular rate and rhythm without murmurs ABDOMEN: Soft, nontender, nondistended abdomen. No guarding, no rebound. No masses appreciated. Musculoskeletal: Normal range of motion, no pitting or edema. No cyanosis. NEUROLOGICAL: Cranial nerves grossly intact. Delayed, slow responses. Normal sensory, motor exams PSYCH: Flat affect. SKIN: Warm, Dry, normal turgor, no rashes or lesions noted. (TOMEKA BUCK) Course - Laboratory Result Diagrams: 07/09/20 08:08 07/09/20 08:08 - EKG Interpretation by [facility] shows normal: Sinus rhythm - Rate 83, normal axis, normal intervals, no ST segment elevations or depressions to suggest ischemia. <TOMEKA BUCK - Last Filed: 07/09/20 10:46> - Laboratory Result Diagrams: 07/09/20 08:08 07/09/20 08:08 <MARIA R MATTHEWS - Last Filed: 07/09/20 18:49> - Laboratory Result Diagrams: 07/09/20 08:08 07/09/20 08:08 <JENNIFER MARIN - Last Filed: 07/09/20 20:09> - Re-evaluation Re-evalutation: Patient presents the emergency department with very vague complaints. Upon review of the records patient has been here before for benzodiazepine withdrawal seizures. Patient apparently ran out of his [place] and Xanax approximately 1 week ago. He has been on these medications for years. He states to me that he was abusing them which is why his provider will not represcribed them. Patient is awake, alert, slightly slowed responses but appropriate. Work-up is pending. Nursing staff is calling patient's to find out what his baseline is. Patient has no focal neurological deficits, I do not suspect an acute stroke. 07/09/20 10:48 Nursing staff is spoken with patient's . She states that patient has taken all of his medications but has been over the last couple of weeks. CBC, CMP, UA and tox screen are all negative. Patient is medically cleared at this time. Pending psych consult. (TOMEKA BUCK) 07/09/20 20:07 I have seen and evaluated the patient. Report was received from Tomeka Buck, nurse practitioner. I have also discussed this patient with Maria R Patel. The patient is stable and in no acute distress. He is not acutely psychotic. He is having no auditory or visual hallucinations. He denies suicidal or homicidal ideation. His is at the bedside to take him home. (JENNIFER MARIN) - Vital Signs Vital signs: Temp Pulse Resp BP Pulse Ox 99 F 88 16 140/75 H 96 07/09/20 14:00 07/09/20 14:00 07/09/20 14:00 07/09/20 14:00 07/09/20 14:00 - Laboratory Laboratory results interpreted by me: 07/09/20 07/09/20 08:08 08:08 WBC 11.4 H Sodium 133.3 L Potassium 3.4 L Chloride 93 L BUN 47 H Glucose 133 H Total Protein 8.3 H Salicylates < 1.0 L Acetaminophen < 10 L Discharge <TOMEKA BUCK - Last Filed: 07/09/20 10:46> <MARIA R MATTHEWS - Last Filed: 07/09/20 18:49> <JENNIFER MARIN - Last Filed: 07/09/20 20:09> - Discharge Clinical Impression: Substance abuse Condition: Stable Disposition: HOME, SELF-CARE Instructions: Narcotic Abuse ([facility]) Additional Instructions: You have been evaluated both medical and behavioral teams have been deemed appropriate for discharge. You are encouraged to follow-up with substance abuse treatment now that you are detoxed. You have been vital local resource list of area providers including detox facilities and mobile crisis contact information. AT ANY TIME, IF YOUR SYMPTOMS CHANGE SIGNIFICANTLY OR WORSEN OR YOU DEVELOP NEW SYMPTOMS, RETURN TO THE EMERGENCY DEPARTMENT IMMEDIATELY FOR RE-EVALUATION. Referrals: SANDEEP SINGLETON MD [Primary Care Provider] - Follow up as needed [facility] [Outside] - Follow up as needed
[2020-07-09 08:42] LABS: ALBUMIN 4.9 g/dL (3.5-5.0); ALKALINE PHOSPHATASE 69 U/L (38-126); ANION GAP 14 (5-19); ASPARTATE AMINO TRANSFERASE 34 U/L (17-59); BILIRUBIN,TOTAL 1.3 mg/dL (0.2-1.3); BLOOD UREA NITROGEN 47 mg/dL (7-20); CALCIUM 10.1 mg/dL (8.4-10.2); CARBON DIOXIDE 26 mmol/L (22-30); CHLORIDE 93 mmol/L (98-107); GLUCOSE 133 mg/dL (75-110); POTASSIUM 3.4 mmol/L (3.6-5.0); TOTAL PROTEIN 8.3 g/dL (6.3-8.2)
[2020-07-09 08:49] LABS: ACETAMINOPHEN < 10 ug/mL (10-30); ALCOHOL < 10 mg/dL (NONE DETECTED); SALICYLATE < 1.0 mg/dL (2.0-20.0)
[2020-07-09 09:52] LABS: APPEARANCE,URINE CLEAR; BILIRUBIN,URINE NEGATIVE (NEGATIVE); COLOR,URINE YELLOW; GLUCOSE, URINE NEGATIVE (NEGATIVE); KETONES,URINE NEGATIVE (NEGATIVE); LEUKOCYTE ESTERASE,URINE NEGATIVE (NEGATIVE); NITRITE,URINE NEGATIVE (NEGATIVE); PROTEIN,URINE NEGATIVE (NEGATIVE); URINE SPECIFIC GRAVITY 1.021; UROBILINOGEN,URINE NEGATIVE mg/dL (<2.0)
[2020-07-09] MEDS ORDERED: NORMAL SALINE 1000 ML 1,000 ML IV ONE (09:57)
[2020-07-09 10:08] LABS: URINE AMPHETAMINES SCREEN NEGATIVE; URINE BARBITURATES SCREEN NEGATIVE; URINE BENZODIAZEPINES SCREEN NEGATIVE; URINE COCAINE SCREEN NEGATIVE; URINE MARIJUANA (THC) SCREEN NEGATIVE; URINE METHADONE SCREEN NEGATIVE; URINE PHENCYCLIDINE SCREEN NEGATIVE
[2020-07-09] MEDS ORDERED: HYDROXYZINE PAMOATE 25 MG CAPSULE PO ONE (10:37)
[2020-07-09] MEDS ORDERED: ACETAMINOPHEN 325 MG TABLET PO ONE (10:37)
--- NOTE | 2020-07-09 11:10 | EKG REPORT ---
SEVERITY:- BORDERLINE ECG - ECTOPIC ATRIAL RHYTHM BORDERLINE T WAVE ABNORMALITIES : Confirmed by: Chilango Benz MD 09-Jul-2020 11:09:03
--- NOTE | 2020-07-09 17:15 | PSYCHOLOGICAL NOTE ---
Psych Note - Psych Note Date seen by psych provider: 07/09/20 Time seen by psych provider: 11:15 Psych Note: Reason for Consult:odd presentation Consent permissions: Patient presented to [facility] ED via EMS for medical complaint. Patient is noted to make numerous uatsdin comments that could be eluting to . Patient is alert and orientated to person, place, time and circumstance. Mood euthymic with congruent affect. Patient denies suicidal and homicidal ideation. Delusions are absent he is not demonstrating any behaviours of responding to internal stimuli; behaviours are congruent with an intact reality based presentation ie organized and linear though processes. Eye contact was well maintained. Conversational speech is with normal rate tone and prosody. Patient does report forgetfulness. attention and concentration is fair. Insight, judgment and impulse control is fair. IVC Criteria per [place] GS 122C Dangerous to others Within the relevant past the individual No has inflicted or attempted to inflict or threatened to inflict serious bodily harm on another AND No that there is a reasonable probability that this conduct will be repeated as there is an absence of supervision or structure to prevent. OR No has acted in such a way as to create a substantial risk of serious bodily harm to another AND No that there is a reasonable probability that this conduct will be repeated as there is an absence of supervision or structure to prevent. OR No has engaged in extreme destruction of property AND NO that there is a reasonable probability that this conduct will be repeated as there is an absence of supervision or structure to prevent. Previous episodes of dangerousness to others, when applicable, may be considered when determining reasonable probability of future dangerous conduct. Clear, cogent, and convincing evidence that an individual has committed a homicide in the relevant past is prima facie evidence of dangerousness to others. Dangerous to self Within the relevant past the individual has done any of the following: acted in such a way as to show ALL of the following: No The individual would be unable without care, supervision, and the continued assistance of others not otherwise available, to exercise self- control, judgment, and discretion in the conduct of the individual's daily responsibilities and social relations or to satisfy the individual's need for nourishment, personal or medical care, chcf, or self-protection and safety. AND No There is a reasonable probability of the individual suffering serious physical debilitation within the near future unless adequate treatment is given. A showing of behavior that is grossly irrational, of actions that the individual is unable to control, of behavior that is grossly inappropriate to the situation, or of other evidence of severely impaired insight and judgment shall create a prima facie inference that the individual is unable to care for himself or herself. Patient is making odd comments about needing someone to take care of him as he is unable to care for himself. Currently, there is not evidence the patient is unable to care for himself. Patient is able to do all his ADLs and even has housing. He has overtones of yazdanism during evaluation but denies wanting to dying reporting he is afraid to and wanting to atone for his sins. He has not engaged in any action or made any statement that would cause himself or others harm. OR No has attempted suicide or threatened suicide AND No that there is a reasonable probability of suicide unless adequate treatment is given as there is an absence of supervision or structure to prevent suicide of patient who has made an attempt, serious gesture or threat. Patient is make some odd comments about yazdanism (Reportedly he is not a overly uatsdin man) but states he is scared to and does not want to . He denies any thoughts of harm to himself. OR No has mutilated himself or herself or attempted to mutilate himself or herself AND No that there is a reasonable probability of serious self-mutilation unless adequate treatment is given as there is an absence of supervision or structure to prevent. NOTE: Previous episodes of dangerousness to self, when applicable, may be considered when determining reasonable probability of physical debilitation, suicide, or self-mutilation. Impression\plan: Patient is cleared from acute psychiatric services. Patient is not longer hyper focused on yazdanism (clinician notes patient's previous comments/ beliefs would not put himself or other's in harm). Patient is asking about medical treatment and concerns to include IBS, diverticulitis, confusion and forgetfulness. He denies any thoughts of wanting to harm himself or others. Patient has been abusing his xanax and oxycodone and has been going through withdrawal. He is no longer presenting with physical withdrawal. He is encouraged to follow up with substance abuse treatment and has been provided the local resource list of substance abuse providers, rehab facilities, and mobile crisis contact information. Dr. Whitfield was consulted to care management of this patient; attending physicians in agreement with recommendations and disposition.
[2020-07-09 20:04] VITALS: BP 141/75
== END 2020-07-09 20:30 | disposition home or self-care (01) ==
LOC: ER 07:34
DX: F19.10 Other psychoactive substance abuse, uncomplicated (principal); K62.89 Other specified diseases of anus and rectum; K62.5 Hemorrhage of anus and rectum; Z79.899 Other long term (current) drug therapy; Z88.0 Allergy status to penicillin; Z88.2 Allergy status to sulfonamides; F41.9 Anxiety disorder, unspecified; I10 Essential (primary) hypertension
CPT/HCPCS: 93005; 99284; 96360; 36415; 80307 ×4; 85025; 80053; 81001; 93010; J7030

== ENCOUNTER 2020-07-13 10:56 | Emergency (ER) | payer SELFPAY ==
[2020-07-13 12:21] LABS: ABSOLUTE LYMPHOCYTES (AUTO) 1.6 10^3/uL (0.5-4.7); ABSOLUTE MONOCYTES (AUTO) 0.9 10^3/uL (0.1-1.4); ABSOLUTE NEUT (AUTO) 8.2 10^3/uL (1.7-8.2); BASOPHILS % (AUTO) 0.4 % (0-2); EOSINOPHILS % (AUTO) 0.3 % (0-6); HEMATOCRIT 39.9 % (37.9-51.0); HEMOGLOBIN 14.1 g/dL (13.5-17.0); LYMPHOCYTES % (AUTO) 14.4 % (13-45); MEAN CORPUSCULAR HEMOGLOBIN 31.4 pg (27.0-33.4); MEAN CORPUSCULAR HGB CONC 35.4 g/dL (32.0-36.0); MEAN CORPUSCULAR VOLUME 89 fl (80-97); MONOCYTES % (AUTO) 8.6 % (3-13); PLATELET COUNT 269 10^3/uL (150-450); RED BLOOD COUNT 4.49 10^6/uL (4.35-5.55); SEGMENTED NEUTROPHILS % (AUTO) 76.3 % (42-78); TOTAL CELLS COUNTED % (AUTO) 100 %; WHITE BLOOD COUNT 10.7 10^3/uL (4.0-10.5)
[2020-07-13 12:27] LABS: ALBUMIN 4.6 g/dL (3.5-5.0); ALKALINE PHOSPHATASE 55 U/L (38-126); ANION GAP 10 (5-19); ASPARTATE AMINO TRANSFERASE 27 U/L (17-59); BILIRUBIN,DIRECT 0.2 mg/dL (0.0-0.4); BILIRUBIN,TOTAL 0.7 mg/dL (0.2-1.3); BLOOD UREA NITROGEN 22 mg/dL (7-20); CALCIUM 10.2 mg/dL (8.4-10.2); CARBON DIOXIDE 26 mmol/L (22-30); CHLORIDE 97 mmol/L (98-107); GLUCOSE 120 mg/dL (75-110); POTASSIUM 3.9 mmol/L (3.6-5.0); TOTAL PROTEIN 7.6 g/dL (6.3-8.2)
[2020-07-13 12:36] LABS: ALCOHOL < 10 mg/dL (NONE DETECTED)
[2020-07-13 12:44] LABS: APPEARANCE,URINE CLEAR; BILIRUBIN,URINE NEGATIVE (NEGATIVE); COLOR,URINE YELLOW; GLUCOSE, URINE NEGATIVE (NEGATIVE); KETONES,URINE NEGATIVE (NEGATIVE); LEUKOCYTE ESTERASE,URINE NEGATIVE (NEGATIVE); NITRITE,URINE NEGATIVE (NEGATIVE); PROTEIN,URINE NEGATIVE (NEGATIVE); URINE SPECIFIC GRAVITY 1.016; UROBILINOGEN,URINE NEGATIVE mg/dL (<2.0)
[2020-07-13 12:59] LABS: URINE AMPHETAMINES SCREEN NEGATIVE; URINE BARBITURATES SCREEN NEGATIVE; URINE BENZODIAZEPINES SCREEN NEGATIVE; URINE COCAINE SCREEN NEGATIVE; URINE MARIJUANA (THC) SCREEN NEGATIVE; URINE METHADONE SCREEN NEGATIVE; URINE PHENCYCLIDINE SCREEN NEGATIVE
[2020-07-13] MEDS ORDERED: LORAZEPAM 1 MG TABLET PO ONE (13:16)
--- NOTE | 2020-07-13 13:58 | RADIOLOGY REPORT (SQ) ---
EXAM DESCRIPTION: CT HEAD WITHOUT IMAGES COMPLETED DATE/TIME: 07/13/2020 1:32 pm REASON FOR STUDY: seizure COMPARISON: 09/11/2019 TECHNIQUE: Axial images acquired through the brain without intravenous contrast. Images reviewed wi th bone, brain and subdural windows. Additional sagittal and coronal reconstructions were generated. Images stored on PACS. All CT scanners at this facility use dose modulation, iterative reconstruction, and/or weight based d osing when appropriate to reduce radiation dose to as low as reasonably achievable (ALARA). [facility]: Dose Right [facility]: CareDose [facility]: Dose Right [facility]: Teradose 4D [facility]: WHATT RADIATION DOSE: CT Rad equipment meets quality standard of care and radiation dose reduction techniq ues were employed. CTDIvol: 53.2 mGy. DLP: 1017 mGy-cm. mGy. LIMITATIONS: None. FINDINGS: VENTRICLES: Normal size and contour. CEREBRUM: No masses. No hemorrhage. No midline shift. No evidence for acute infarction. Normal gra y/white matter differentiation. No areas of low density in the white matter. CEREBELLUM: No masses. No hemorrhage. No alteration of density. No evidence for acute infarction. EXTRAAXIAL SPACES: No fluid collections. No masses. ORBITS AND GLOBE: No intra- or extraconal masses. Normal contour of globe without masses. CALVARIUM: No fracture. PARANASAL SINUSES: No fluid or mucosal thickening. SOFT TISSUES: No mass or hematoma. OTHER: No other significant finding. IMPRESSION: NORMAL BRAIN CT WITHOUT CONTRAST. EVIDENCE OF ACUTE STROKE: NO. COMMENT: Quality ID # [id number]: Final reports with documentation of one or more dose reduction techniques (e.g., Automated exposure control, adjustment of the mA and/or kV according to patient size, use of iterative reconstruction technique) TECHNICAL DOCUMENTATION: JOB ID: [id number] 2010 [employer]- All Rights Reserved Reading location - IP/workstation name: [email or web address]
--- NOTE | 2020-07-13 14:03 | ER Document Report ---
ED General - General Chief Complaint: Probable Seizure Stated Complaint: POSSIBLE SEIZURE Time Seen by Provider: 07/13/20 12:30 Primary Care Provider: SANDEEP STRINGER MD [Primary Care Provider] - Follow up as needed Mode of Arrival: Medic Information source: Patient TRAVEL OUTSIDE OF THE [place] IN LAST 30 DAYS: No - HPI Notes: Patient presents complaining of having had a seizure at home. I tried to obtain history from patient EMS and family. The patient apparently had a tonic-clonic seizure of an unknown duration while in bed. Patient states that he injured his teeth and tongue from the seizure this morning. He states he is also had 2 other seizures over the last several days but did not come to the hospital. Apparently EMS was called for one of the seizures but he refused transport. Patient admits he does have a history of abusing narcotics and benzodiazepines and measures recently had his family physician stopped prescribing those. He states he has had no benzodiazepines for approximately 1 to 2 weeks. Patient complains of headache and mouth pain. This pain is now constant and moderate. It is worse with movement and better with rest. He denies any other significant recent trauma. No fever sweats or chills. He denies any past history of seizures. - Related Data Allergies/Adverse Reactions: Penicillins Allergy (Verified 07/13/20 11:21) Sulfa (Sulfonamide Antibiotics) Allergy (Verified 07/13/20 11:21) Past Medical History - General Information source: Patient - Social History Smoking Status: Former Smoker Frequency of alcohol use: None Drug Abuse: None Family History: CAD - Past Medical History Cardiac Medical History: Reports: Hx Hypercholesterolemia, Hx Hypertension Neurological Medical History: Reports: Hx Migraine Renal/ Medical History: Denies: Hx Peritoneal Dialysis GI Medical History: Reports: Hx Irritable Bowel, Hx Colonoscopy - Divert iculosis, Hx Endoscopy. Denies: Hx Diverticulitis Musculoskeletal Medical History: Reports Hx Musculoskeletal Deformity, Reports Hx Musculoskeletal Trauma Psychiatric Medical History: Reports: Hx Anxiety - xanax daily, Hx Depression Traumatic Medical History: Reports: Hx Fractures - Ribs posterior Past Surgical History: Reports: Hx Myringotomy, Other - Right eye - Immunizations Immunizations up to date: Yes Hx Diphtheria, Pertussis, Tetanus Vaccination: Yes Review of Systems - Review of Systems Constitutional: denies: Chills, Fever Cardiovascular: denies: Chest pain, Palpitations Respiratory: denies: Cough, Short of breath -: Yes All other systems reviewed and negative Physical Exam - Vital signs Vitals: Resp Pulse Ox 15 97 07/13/20 10:59 07/13/20 10:59 Interpretation: Normal - General General appearance: Appears well, Alert - HEENT Head: Normocephalic, Other - Patient has some mild nontender abrasions of the top of his head Eyes: Normal Pupils: PERRL Mouth/Lips: Dental fracture, Other - Patient has several fractured lower teeth. He also has a contusion to the anterior right part of his tongue - Respiratory Respiratory status: No respiratory distress Chest status: Nontender Breath sounds: Normal Chest palpation: Normal - Cardiovascular Rhythm: Regular Heart sounds: Normal auscultation Murmur: No - Abdominal Inspection: Normal Distension: No distension Bowel sounds: Normal Tenderness: Nontender Organomegaly: No organomegaly - Back Back: Normal, Nontender - Extremities General upper extremity: Normal inspection, Nontender, Normal color, Normal ROM, Normal temperature General lower extremity: Normal inspection, Nontender, Normal color, Normal ROM, Normal temperature, Normal weight bearing. No: Gera's sign - Neurological Neuro grossly intact: Yes Cognition: Normal Orientation: AAOx4 [place] Coma Scale Eye Opening: Spontaneous [place] Coma Scale Verbal: Oriented [place] Coma Scale Motor: Obeys Commands [place] Coma Scale Total: 15 Speech: Normal Motor strength normal: LUE, RUE, LLE, RLE Sensory: Normal - Psychological Associated symptoms: Normal affect, Normal mood - Skin Skin Temperature: Warm Skin Moisture: Dry Skin Color: Normal Course - Re-evaluation Re-evalutation: 07/13/20 14:09 Patient presents seizure-like activity. He does have injuries consistent with seizure-like activity to the teeth and tongue. The seizures appear to be most likely secondary to benzodiazepine withdrawal as he was on benzodiazepines for 5 years and was recently stopped on those. I am going to send the patient home with several days of Ativan and I have instructed him that he will need to taper off of benzodiazepines. I also called and spoke with his family physician, Dr. Stringer. He will follow back up in the office with Dr. Stringer who will work to taper the patient as well as refer to neurology. - Vital Signs Vital signs: Temp Pulse Resp BP Pulse Ox 98.9 F 19 109/79 96 07/13/20 11:18 07/13/20 14:00 07/13/20 13:01 07/13/20 14:00 - Laboratory Result Diagrams: 07/13/20 11:07 07/13/20 11:07 Laboratory results interpreted by me: 07/13/20 07/13/20 11:07 11:07 WBC 10.7 H Sodium 133.4 L Chloride 97 L BUN 22 H Glucose 120 H - Diagnostic Test Radiology reviewed: Image reviewed, Reports reviewed Discharge - Discharge Clinical Impression: Benzodiazepine withdrawal with complication, Seizure Tooth fractures Qualifiers: Encounter type: initial encounter Fracture type: closed Qualified Code(s): S02.5XXA - Fracture of tooth (traumatic), initial encounter for closed fracture Tongue injury Qualifiers: Encounter type: initial encounter Qualified Code(s): S09.93XA - Unspecified injury of face, initial encounter Condition: Stable Disposition: HOME, SELF-CARE Instructions: New Seizure ([facility]), Benzodiazepines ([facility]) Additional Instructions: It is very important that you follow-up with your primary care doctor in the next 1 to 2 days. This is because you have only been discharged with 3 days worth of a benzodiazepine called Ativan. This has been given to you to prevent seizure activity. Therefore when the prescription runs out he will be at risk of having seizures again. Prescriptions: Lorazepam [Ativan 0.5 mg Tablet] 0.5 mg PO BID 3 Days #6 tab Forms: Return to Work Referrals: SANDEEP STRINGER MD [Primary Care Provider] - Follow up tomorrow (Please follow up with Dr. Stringer as soon as possible to taper benzodiazepiines and discuss neurology referral.) GERMAN SOLANO MD [COMMUNITY BASED STAFF] - Follow up in 3-5 days
[2020-07-13] MEDS ORDERED: KETOROLAC TROMETHAMINE 60 MG/2 ML SDV IM ONE (14:37)
[2020-07-13 15:01] VITALS: BP 123/78
== END 2020-07-13 15:02 | disposition home or self-care (01) ==
LOC: ER 10:56
DX: S02.5XXA Fracture of tooth (traumatic), initial encounter for closed fracture (principal); S09.93XA Unspecified injury of face, initial encounter; R56.9 Unspecified convulsions; F19.239 Other psychoactive substance dependence with withdrawal, unspecified; X58.XXXA Exposure to other specified factors, initial encounter; Z88.0 Allergy status to penicillin; Z88.2 Allergy status to sulfonamides; Z87.891 Personal history of nicotine dependence
CPT/HCPCS: 99285; 96372; 36415; 80307 ×2; 83735; 85025; 80053; 81001; 70450; J1885

== ENCOUNTER 2020-08-01 13:32 | Emergency (ER) | payer SELFPAY ==
--- NOTE | 2020-08-01 14:39 | ER Document Report ---
ED Medical Screen (RME) - General Chief Complaint: Chest Pain Stated Complaint: CHEST PAIN Time Seen by Provider: 08/01/20 14:24 Primary Care Provider: SANDEEP SINGLETON MD [Primary Care Provider] - Follow up as needed Notes: Patient presents complaining of recent Covid exposure. Patient states he has been sick for the past week including cough, chest pain difficulty breathing and dizziness. Patient feels as though his weakness worsened prompting his visit today. Patient reports some diarrhea. Patient has underlying history of hypertension. Patient also complains of a hemorrhoid that is flared up causing blood in his stool. I have greeted and performed a rapid initial assessment of this patient. A comprehensive ED assessment and evaluation of the patient, analysis of test results and completion of the medical decision making process will be conducted by additional ED providers. TRAVEL OUTSIDE OF THE [place] IN LAST 30 DAYS: No - Related Data Allergies/Adverse Reactions: Penicillins Allergy (Verified 07/13/20 11:21) Sulfa (Sulfonamide Antibiotics) Allergy (Verified 07/13/20 11:21) Past Medical History - Social History Family history: CVA, Hypertension - Past Medical History Cardiac Medical History: Reports: Hx Hypercholesterolemia, Hx Hypertension Neurological Medical History: Reports: Hx Migraine Renal/ Medical History: Denies: Hx Peritoneal Dialysis GI Medical History: Reports: Hx Irritable Bowel, Hx Colonoscopy - Diverticulosis, Hx Endoscopy. Denies: Hx Diverticulitis Musculoskeltal Medical History: Reports Hx Musculoskeletal Deformity, Reports Hx Musculoskeletal Trauma Psychiatric Medical History: Reports: Hx Anxiety - xanax daily, Hx Depression Traumatic Medical History: Reports: Hx Fractures - Ribs posterior Past Surgical History: Reports: Hx Myringotomy, Other - Right eye - Immunizations Immunizations up to date: Yes Hx Diphtheria, Pertussis, Tetanus Vaccination: Yes Physical Exam - Vital signs Vitals: Temp Pulse Resp BP Pulse Ox 99.5 F 89 20 129/76 H 98 08/01/20 13:54 08/01/20 13:54 08/01/20 13:54 08/01/20 13:54 08/01/20 13:54 - Respiratory Respiratory status: No respiratory distress Breath sounds: Nonproductive cough, Rales - Left lower lobe Course - Vital Signs Vital signs: Temp Pulse Resp BP Pulse Ox 99.5 F 89 20 129/76 H 98 08/01/20 13:54 08/01/20 13:54 08/01/20 13:54 08/01/20 13:54 08/01/20 13:54 Doctor's Discharge - Discharge Referrals: SANDEEP SINGLETON MD [Primary Care Provider] - Follow up as needed
--- NOTE | 2020-08-01 16:40 | RADIOLOGY REPORT (SQ) ---
EXAM DESCRIPTION: CHEST SINGLE VIEW IMAGES COMPLETED DATE/TIME: 08/01/2020 4:17 pm REASON FOR STUDY: cough COMPARISON: 07/02/2020. EXAM PARAMETERS: NUMBER OF VIEWS: One view. TECHNIQUE: Single frontal radiographic view of the chest acquired. RADIATION DOSE: NA LIMITATIONS: None. FINDINGS: LUNGS AND PLEURA: No opacities, masses or pneumothorax. No pleural effusion. MEDIASTINUM AND HILAR STRUCTURES: No masses. Contour normal. HEART AND VASCULAR STRUCTURES: Heart normal in size. Normal vasculature. BONES: No acute findings. HARDWARE: None in the chest. OTHER: No other significant finding. IMPRESSION: NO ACUTE RADIOGRAPHIC FINDING IN THE CHEST. TECHNICAL DOCUMENTATION: JOB ID: [id number] 2010 [employer]- All Rights Reserved Reading location - IP/workstation name: [email or web address]
[2020-08-01 17:03] LABS: ALBUMIN 4.8 g/dL (3.5-5.0); ALKALINE PHOSPHATASE 79 U/L (38-126); ANION GAP 12 (5-19); ASPARTATE AMINO TRANSFERASE 55 U/L (17-59); BILIRUBIN,DIRECT 0.3 mg/dL (0.0-0.4); BILIRUBIN,TOTAL 0.8 mg/dL (0.2-1.3); BLOOD UREA NITROGEN 21 mg/dL (7-20); CALCIUM 10.1 mg/dL (8.4-10.2); CARBON DIOXIDE 24 mmol/L (22-30); CHLORIDE 99 mmol/L (98-107); GLUCOSE 104 mg/dL (75-110); POTASSIUM 4.1 mmol/L (3.6-5.0); TOTAL PROTEIN 8.6 g/dL (6.3-8.2)
[2020-08-01 17:21] LABS: ABSOLUTE EOSINOPHILS # (AUTO) 0.1 10^3/uL (0.0-0.6); ABSOLUTE LYMPHOCYTES (AUTO) 2.8 10^3/uL (0.5-4.7); ABSOLUTE MONOCYTES (AUTO) 0.9 10^3/uL (0.1-1.4); ABSOLUTE NEUT (AUTO) 8.4 10^3/uL (1.7-8.2); BASOPHILS % (AUTO) 0.3 % (0-2); EOSINOPHILS % (AUTO) 0.9 % (0-6); HEMATOCRIT 44.2 % (37.9-51.0); HEMOGLOBIN 15.4 g/dL (13.5-17.0); LYMPHOCYTES % (AUTO) 22.9 % (13-45); MEAN CORPUSCULAR HGB CONC 34.9 g/dL (32.0-36.0); MEAN CORPUSCULAR VOLUME 89 fl (80-97); MONOCYTES % (AUTO) 7.4 % (3-13); PLATELET COUNT 353 10^3/uL (150-450); RED BLOOD COUNT 4.98 10^6/uL (4.35-5.55); RED CELL DISTRIBUTION WIDTH 13.6 % (11.5-14.0); SEGMENTED NEUTROPHILS % (AUTO) 68.5 % (42-78); TOTAL CELLS COUNTED % (AUTO) 100 %; WHITE BLOOD COUNT 12.3 10^3/uL (4.0-10.5)
--- NOTE | 2020-08-01 18:09 | ER Document Report ---
ED General - General Chief Complaint: Chest Congestion Stated Complaint: CHEST PAIN Time Seen by Provider: 08/01/20 14:24 Primary Care Provider: SANDEEP SINGLETON MD [Primary Care Provider] - Follow up as needed Mode of Arrival: Ambulatory Information source: Patient Notes: 49-year-old man presents to the emergency department with a history of son tested positive for the coronavirus approximately 1 week ago. He had been at home with family for a 2-week timeframe prior to being tested. Patient complains of headache, cough, feeling short of breath and history of he morrhoids. He also notes that he has had a long history of hemorrhoid problems and is questioning whether he should see a surgeon. He has had some intermittent rectal bleeding associated with a hemorrhoid. TRAVEL OUTSIDE OF THE [place] IN LAST 30 DAYS: No - Related Data Allergies/Adverse Reactions: Penicillins Allergy (Verified 08/01/20 16:40) Sulfa (Sulfonamide Antibiotics) Allergy (Verified 08/01/20 16:40) Past Medical History - Social History Smoking Status: Never Smoker Family History: CAD - Past Medical History Cardiac Medical History: Reports: Hx Hypercholesterolemia, Hx Hypertension Neurological Medical History: Reports: Hx Migraine Renal/ Medical History: Denies: Hx Peritoneal Dialysis GI Medical History: Reports: Hx Irritable Bowel, Hx Colonoscopy - Diverticulosis, Hx Endoscopy. Denies: Hx Diverticulitis Musculoskeletal Medical History: Reports Hx Musculoskeletal Deformity, Reports Hx Musculoskeletal Trauma Psychiatric Medical History: Reports: Hx Anxiety - xanax daily, Hx Depression Traumatic Medical History: Reports: Hx Fractures - Ribs posterior Past Surgical History: Reports: Hx Myringotomy, Other - Right eye - Immunizations Immunizations up to date: Yes Hx Diphtheria, Pertussis, Tetanus Vaccination: Yes Review of Systems - Review of Systems Notes: Constitutional: See HPI HENT: Negative for sore throat. Eyes: Negative for visual changes. Cardiovascular: Negative for chest pain. Respiratory: Negative for shortness of breath. Gastrointestinal: See HPI Genitourinary: Negative for dysuria. Musculoskeletal: Negative for back pain. Skin: Negative for rash. Neurological: Negative for headaches, weakness or numbness. 10 point ROS negative except as marked above and in HPI. Physical Exam - Vital signs Vitals: Temp Pulse Resp BP Pulse Ox 99.5 F 89 20 129/76 H 98 08/01/20 13:54 08/01/20 13:54 08/01/20 13:54 08/01/20 13:54 08/01/20 13:54 - Notes Notes: PHYSICAL EXAMINATION: Physical Exam: General: Well-nourished well-developed 49-year-old in no acute distress HEENT: NC/AT, pupils equal round and reactive to light, MM moist,nares clear, oropharynx clear, airway patent Neck: supple, no adenopathy, no masses. Good range of motion Lungs: clear, no wheezing, no rales no rhonchi CVS: Regular rate and rhythm no murmur gallop or rub Abdomen: Soft, active, nontender, no masses, no hepatosplenomegaly Ext: No edema, clubbing or cyanosis. Neuro: Alert and responsive, moving all 4 extremities on command, cranial nerves intact, no focal findings Skin: Intact no open lesions, no rash PSYCH: Normal mood, normal affect. Course - Vital Signs Vital signs: Temp Pulse Resp BP Pulse Ox 99.5 F 89 14 149/96 H 96 08/01/20 13:54 08/01/20 13:54 08/01/20 19:01 08/01/20 19:00 08/01/20 19:01 - Laboratory Results Result Diagrams: 08/01/20 17:00 08/01/20 16:28 Laboratory Results Interpreted: 08/01/20 08/01/20 16:28 17:00 WBC 12.3 H Absolute Neuts (auto) 8.4 H Sodium 135.3 L BUN 21 H Magnesium 2.4 H ALT 102 H Total Protein 8.6 H 08/01/20 20:33 I have reviewed laboratory data and used this information for the treatment decisions regarding the patient. Critical Laboratory Results Reviewed: No Critical Results - Radiology Results Radiology Results Interpreted: 08/01/20 20:33 Chest X-Ray 08/01/20 14:38 IMPRESSION: NO ACUTE RADIOGRAPHIC FINDING IN THE CHEST. Critical Radiology Results Reviewed: No Critical Results Discharge - Discharge Clinical Impression: Suspected 2019 novel coronavirus infection, External hemorrhoid Condition: Good Disposition: HOME, SELF-CARE Instructions: COVID-19 Guidance for Persons Under Investigation, HC Hemorrhoid Cream ([facility]), Hemorrhoids ([facility]) Additional Instructions: You are seen in the emergency department tonight for symptoms suggestive of the COVID 19 viral infection. Since you were a contact for your son who tested positive and are now developing low-grade fever and body aches and pains it is high probability that your test will be positive please self quarantine until you receive the results of your testing. Began vitamin D 5000 IU daily, zinc 50 mg daily, vitamin C 1000 mg daily. If your symptoms are worse, you should return to the hospital for further evaluation and treatment. You were also given a prescription for medications to use for your hemorrhoids. Use the medication as prescribed continue to use warm water soaks. I am providing you with the name of the surgeon clinical application specialist whom you may follow-up with for evaluation of possible surgical intervention. HOME CARE INSTRUCTIONS & INFORMATION: Thank you for choosing us for your medical needs. We hope you're satisfied with the care you received. After you leave, you must properly care for your problem and, at the same time, observe its progress. Any condition can change. Some illnesses can change rapidly over hours or days. If your condition worsens, return to the Emergency Department or see your physician promptly. ABOUT YOUR X-RAYS AND EKG'S: If you had an EKG or X-rays taken, they have been read by the Emergency Physician. The X-rays and EKG's will also be read by a Radiologist or Marketing Director within 24 hours. If discrepancies are noted, you will be notified by telephone. Please be certain the ED has a correct telephone number & address where you can be reached. Also, realize that some fractures or abnormalities do not show up on initial X-rays. If your symptoms continue, see your physician. ABOUT YOUR LABORATORY TEST: If you had laboratory tests, the results have been reviewed by the Emergency Physician. Some test results (for example cultures) may not be available for several days. You will be contacted if any test result shows you need additional treatment. Please be certain the ED has a correct telephone number and address where you can be reached. ABOUT YOUR MEDICATIONS: You will receive instructions on how to take your medicine on the prescription label you receive. Additional information may be provided by the Pharmacy. If you have questions afterwards, call the ED for clarification or further instructions. Some prescribed medications may cause drowsiness. Do not perform tasks such as driving a car or operating machinery without consulting your Pharmacist. If you feel you need a refill of pain medication, your condition will need re-evaluation. Please do not call for a refill of any medication. ABOUT YOUR SIGNATURE: Signature of this document acknowledges to followin. Understanding that you received emergency treatment and that you may be released before al medical problems are known or treated. Please be certain the ED has a correct phone number & address where you can be reached. 2. Acknowledgement that you will arrange for follow-up care as recommended. 3. Authorization for the Emergency Physician to provide information to your follow-up Physician in order to maximize your care. AT ANY TIME, IF YOUR SYMPTOMS CHANGE SIGNIFICANTLY OR WORSEN OR YOU DEVELOP NEW SYMPTOMS, RETURN TO THE EMERGENCY DEPARTMENT IMMEDIATELY FOR RE-EVALUATION. OUR GOAL IS TO PROVIDE EXCELLENT MEDICAL CARE! WE HOPE THAT WE HAVE MET YOUR EXPECTATIONS DURING YOUR EMERGENCY DEPARTMENT VISIT AND THAT YOU FEEL YOU HAVE RECEIVED EXCELLENT CARE! Prescriptions: Hydrocortisone [Anusol-Hc] 1 applic RC ASDIR #30 cream.gm. Ascorbic Acid [Vitamin C] 1,000 mg PO DAILY 60 Days #60 tablet Cholecalciferol (Vitamin D3) [Vitamin D3] 125 mcg PO DAILY 60 Days #60 capsule Zinc [Zinc Chelated] 50 mg PO DAILY 60 Days #60 tablet Referrals: SANDEEP SINGLETON MD [Primary Care Provider] - Follow up as needed
[2020-08-01 20:34] VITALS: BP 153/99
--- NOTE | 2020-08-01 20:39 | EKG REPORT ---
SEVERITY:- BORDERLINE ECG - SINUS RHYTHM BORDERLINE T WAVE ABNORMALITIES : Confirmed by: Marlene aTn MD 01-Aug-2020 20:38:19
== END 2020-08-01 20:56 | disposition home or self-care (01) ==
LOC: ER 13:32
DX: U07.1 COVID-19 (principal); K64.4 Residual hemorrhoidal skin tags; R07.9 Chest pain, unspecified; R68.89 Other general symptoms and signs; E78.00 Pure hypercholesterolemia, unspecified; I10 Essential (primary) hypertension; Z88.2 Allergy status to sulfonamides; Z88.0 Allergy status to penicillin
CPT/HCPCS: 93005; 99285; 36415; 83735; 85025; 87635; 80053; 84484; 71045; 93010; C9803

== ENCOUNTER 2020-08-25 18:04 | Emergency (ER) | payer BC ==
--- NOTE | 2020-08-25 18:41 | ER Document Report ---
ED Medical Screen (RME) - General Chief Complaint: Headache >24 hrs old Stated Complaint: HEADACHE/PAIN DOWN NECK Primary Care Provider: SANDEEP SINGLETON MD [Primary Care Provider] - Follow up as needed TRAVEL OUTSIDE OF THE [place] IN LAST 30 DAYS: No - HPI Notes: 08/25/20 18:39 Rapid Medical Exam HPI: 49-year-old male with ongoing headache for multiple days. Patient says headache is worst of his life. Headache had gradual onset. It is diffuse and throbbing. At times will radiate to his back. No fevers, chills, vision changes, unilateral numbness or weakness. Denies history of headache syndromes. No personal cancer history. Taking aspirin without relief. Patient says he was taken off his Xanax and Zoloft over a month ago and switched to Prozac and BuSpar. No other medication changes. Physical Exam: GENERAL: Well-appearing, well-nourished and in no acute distress. HEAD: Atraumatic, normocephalic. ENT: Moist mucous membranes. RESP: Respirations even and unlabored CV- Regular rate. NEURO: No focal neurological deficits. Moves all extremities spontaneously and on command. My involvement in this patients care was limited to a rapid initial assessment. A comprehensive ED assessment and evaluation of the patient, analysis of test results, treatment, and completion of the medical decision making process will be performed by other ER providers. - Related Data Allergies/Adverse Reactions: Penicillins Allergy (Verified 08/01/20 16:40) Sulfa (Sulfonamide Antibiotics) Allergy (Verified 08/01/20 16:40) Past Medical History - Social History Family history: CVA, Hypertension - Past Medical History Cardiac Medical History: Reports: Hx Hypercholesterolemia, Hx Hypertension Neurological Medical History: Reports: Hx Migraine Renal/ Medical History: Denies: Hx Peritoneal Dialysis GI Medical History: Reports: Hx Irritable Bowel, Hx Colonoscopy - Diverticulosis, Hx Endoscopy. Denies: Hx Diverticulitis Musculoskeltal Medical History: Reports Hx Musculoskeletal Deformity, Reports Hx Musculoskeletal Trauma Psychiatric Medical History: Reports: Hx Anxiety - xanax daily, Hx Depression Traumatic Medical History: Reports: Hx Fractures - Ribs posterior Past Surgical History: Reports: Hx Myringotomy, Other - Right eye - Immunizations Immunizations up to date: Yes Hx Diphtheria, Pertussis, Tetanus Vaccination: Yes Physical Exam - Vital signs Vitals: Temp Pulse Resp BP Pulse Ox 98.8 F 100 20 140/96 H 98 08/25/20 18:18 08/25/20 18:18 08/25/20 18:18 08/25/20 18:18 08/25/20 18:18 Course - Vital Signs Vital signs: Temp Pulse Resp BP Pulse Ox 98.8 F 100 20 140/96 H 98 08/25/20 18:18 08/25/20 18:18 08/25/20 18:18 08/25/20 18:18 08/25/20 18:18 Doctor's Discharge - Discharge Referrals: SANDEEP SINGLETON MD [Primary Care Provider] - Follow up as needed
[2020-08-25 19:16] LABS: ABSOLUTE BASOPHILS # (AUTO) 0.1 10^3/uL (0.0-0.2); ABSOLUTE EOSINOPHILS # (AUTO) 0.2 10^3/uL (0.0-0.6); ABSOLUTE LYMPHOCYTES (AUTO) 2.6 10^3/uL (0.5-4.7); ABSOLUTE MONOCYTES (AUTO) 1.1 10^3/uL (0.1-1.4); ABSOLUTE NEUT (AUTO) 10.1 10^3/uL (1.7-8.2); EOSINOPHILS % (AUTO) 1.7 % (0-6); HEMATOCRIT 44.9 % (37.9-51.0); HEMOGLOBIN 15.4 g/dL (13.5-17.0); LYMPHOCYTES % (AUTO) 18.5 % (13-45); MEAN CORPUSCULAR HEMOGLOBIN 30.2 pg (27.0-33.4); MEAN CORPUSCULAR HGB CONC 34.2 g/dL (32.0-36.0); MEAN CORPUSCULAR VOLUME 88 fl (80-97); MONOCYTES % (AUTO) 7.7 % (3-13); PLATELET COUNT 345 10^3/uL (150-450); RED CELL DISTRIBUTION WIDTH 14.7 % (11.5-14.0); SEGMENTED NEUTROPHILS % (AUTO) 71.1 % (42-78); TOTAL CELLS COUNTED % (AUTO) 100 %; WHITE BLOOD COUNT 14.2 10^3/uL (4.0-10.5)
[2020-08-25 19:27] LABS: ANION GAP 12 (5-19); BLOOD UREA NITROGEN 16 mg/dL (7-20); CALCIUM 10.6 mg/dL (8.4-10.2); CARBON DIOXIDE 25 mmol/L (22-30); CHLORIDE 96 mmol/L (98-107); GLUCOSE 119 mg/dL (75-110); POTASSIUM 4.6 mmol/L (3.6-5.0)
--- NOTE | 2020-08-25 19:49 | RADIOLOGY REPORT (SQ) ---
EXAM DESCRIPTION: CT HEAD WITHOUT IMAGES COMPLETED DATE/TIME: 08/25/2020 7:33 pm REASON FOR STUDY: worst MORGAN of life COMPARISON: 07/13/2020 TECHNIQUE: Axial images acquired through the brain without intravenous contrast. Images reviewed wi th bone, brain and subdural windows. Additional sagittal and coronal reconstructions were generated. Images stored on PACS. All CT scanners at this facility use dose modulation, iterative reconstruction, and/or weight based d osing when appropriate to reduce radiation dose to as low as reasonably achievable (ALARA). [facility]: Dose Right [facility]: CareDose [facility]: Dose Right [facility]: Teradose 4D [facility]: Photoblog RADIATION DOSE: CT Rad equipment meets quality standard of care and radiation dose reduction techniq ues were employed. CTDIvol: 53.2 mGy. DLP: 1017 mGy-cm. mGy. LIMITATIONS: None. FINDINGS: VENTRICLES: Normal size and contour. CEREBRUM: No masses. No hemorrhage. No midline shift. No evidence for acute infarction. Normal gra y/white matter differentiation. No areas of low density in the white matter. CEREBELLUM: No masses. No hemorrhage. No alteration of density. No evidence for acute infarction. EXTRAAXIAL SPACES: No fluid collections. No masses. ORBITS AND GLOBE: No intra- or extraconal masses. Normal contour of globe without masses. CALVARIUM: No fracture. PARANASAL SINUSES: No fluid or mucosal thickening. SOFT TISSUES: No mass or hematoma. OTHER: No other significant finding. IMPRESSION: NORMAL BRAIN CT WITHOUT CONTRAST. EVIDENCE OF ACUTE STROKE: NO. COMMENT: Quality ID # [id number]: Final reports with documentation of one or more dose reduction techniques (e.g., Automated exposure control, adjustment of the mA and/or kV according to patient size, use of iterative reconstruction technique) TECHNICAL DOCUMENTATION: JOB ID: [id number] 2010 [email or web address] All Rights Reserved Reading location - IP/workstation name: [email or web address]
[2020-08-25] MEDS ORDERED: METOCLOPRAMIDE HCL 10 MG TABLET PO ONE (20:45)
[2020-08-25] MEDS ORDERED: DIPHENHYDRAMINE HCL 25 MG CAPSULE PO ONE (20:45)
[2020-08-25] MEDS ORDERED: IBUPROFEN 600 MG TABLET PO ONE (20:46)
--- NOTE | 2020-08-26 00:44 | ER Document Report ---
ED General - General Chief Complaint: Headache Stated Complaint: HEADACHE/PAIN DOWN NECK Time Seen by Provider: 08/26/20 00:43 Primary Care Provider: SANDEEP SINGLETON MD [Primary Care Provider] - Follow up as needed TRAVEL OUTSIDE OF THE [place] IN LAST 30 DAYS: No - HPI Notes: 49-year-old male presents with a headache. Patient states that he developed a headache on Sunday, 4 days ago, around 5 PM. He reports it is all across his head in multiple locations, will occasionally radiate down his neck and into his back. He states that on Sunday it was a medium headache, Sunday it was really bad and he was in tears from the pain. Yesterday and today the pain has been bad as well. Describes the headache as feeling congested. He denies any sinus drainage. He reports taking aspirin without relief. He also bought a medicine for tension headaches which not provide relief as well. Patient states that his headaches are usually not this bad. Denies fever. States that he had Covid in July and recovered well. - Related Data Allergies/Adverse Reactions: Penicillins Allergy (Verified 08/01/20 16:40) Sulfa (Sulfonamide Antibiotics) Allergy (Verified 08/01/20 16:40) Past Medical History - General Information source: Patient - Social History Smoking Status: Unknown if Ever Smoked Chew tobacco use (# tins/day): No Frequency of alcohol use: None Drug Abuse: None Family History: CAD Patient has homicidal ideation: No - Past Medical History Cardiac Medical History: Reports: Hx Hypercholesterolemia, Hx Hypertension Neurological Medical History: Reports: Hx Migraine Renal/ Medical History: Denies: Hx Peritoneal Dialysis GI Medical History: Reports: Hx Irritable Bowel, Hx Colonoscopy - Diverticulosis, Hx Endoscopy. Denies: Hx Diverticulitis Musculoskeletal Medical History: Reports Hx Musculoskeletal Deformity, Reports Hx Musculoskeletal Trauma Psychiatric Medical History: Reports: Hx Anxiety - xanax daily, Hx Depression Traumatic Medical History: Reports: Hx Fractures - Ribs posterior Past Surgical History: Reports: Hx Myringotomy, Other - Right eye - Immunizations Immunizations up to date: Yes Hx Diphtheria, Pertussis, Tetanus Vaccination: Yes Review of Systems - Review of Systems Constitutional: denies: Fever EENT: Other - Light sensitivity Cardiovascular: denies: Chest pain Respiratory: denies: Short of breath Gastrointestinal: denies: Abdominal pain Genitourinary: No symptoms reported Male Genitourinary: No symptoms reported Musculoskeletal: No symptoms reported Skin: No symptoms reported Hematologic/Lymphatic: No symptoms reported Neurological/Psychological: Headaches Physical Exam - Vital signs Vitals: Temp Pulse Resp BP Pulse Ox 98.8 F 100 20 140/96 H 98 08/25/20 18:18 08/25/20 18:18 08/25/20 18:18 08/25/20 18:18 08/25/20 18:18 - General General appearance: Appears well, Alert In distress: None - HEENT Head: Normocephalic, Atraumatic Extraocular movements intact: Yes Pupils: PERRL Tympanic membrane: No: Bulging, Injected Neck: Supple. No: Meningismus - Respiratory Breath sounds: Normal - Cardiovascular Rhythm: Regular Heart sounds: Normal auscultation - Abdominal Inspection: Obese Tenderness: Nontender - Extremities General upper extremity: Normal ROM General lower extremity: Normal ROM. No: Edema - Neurological Neuro grossly intact: Yes Cognition: Normal Orientation: AAOx4 Speech: Normal Cranial nerves: Normal Motor strength normal: LUE, RUE, LLE, RLE Sensory: Normal - Psychological Associated symptoms: Normal affect - Skin Skin Temperature: Warm Course - Re-evaluation Re-evalutation: 49-year-old male presents with headache x4 days, gradually worsening, no relief with [id number] meds, photosensitivity. On exam he is afebrile, alert, nontoxic-appearing, no gross focal neuro deficits. No signs of meningismus. Does not voice any URI symptoms. Suspect tension headache versus migraine headache versus possible sinus headache. He had a head CT done through triage which was negative for acute finding. Will treat symptomatically with Toradol, Compazine, Benadryl and fluids. 08/26/20 02:39 Into check on patient, he is sleeping. 08/26/20 03:19 Patient reports that his headache has almost completely resolved, he still has a little residual headache in the frontal aspect. I discussed with him will prescribe ibuprofen and Fioricet, and he may use these medications for further symptomatic control. Return precautions given, stable at time of discharge. - Vital Signs Vital signs: Temp Pulse Resp BP Pulse Ox 98.8 F 100 20 140/96 H 98 08/25/20 18:18 08/25/20 18:18 08/25/20 18:18 08/25/20 18:18 08/25/20 18:18 - Laboratory Results Result Diagrams: 08/25/20 18:57 08/25/20 18:57 Laboratory Results Interpreted: 08/25/20 08/25/20 18:57 18:57 WBC 14.2 H RDW 14.7 H Absolute Neuts (auto) 10.1 H Sodium 132.7 L Chloride 96 L Glucose 119 H Calcium 10.6 H Critical Laboratory Results Reviewed: No Critical Results - Radiology Results Critical Radiology Results Reviewed: No Critical Results Discharge - Discharge Clinical Impression: Frontal headache Disposition: HOME, SELF-CARE Instructions: Headache ([facility]) Additional Instructions: You may use Fioricet every 4 hours and ibuprofen every 8 hours as needed for further headache control. Please be sure to drink plenty of fluids. Return to the emergency department for any concerning or worsening symptoms. Prescriptions: Butalb/Acetaminophen/Caffeine [Fioricet (50-325-40 mg) Tablet] 1 tab PO Q4HP PRN #30 tab PRN Reason: Ibuprofen [Ibu] 800 mg PO Q8H PRN #30 tablet PRN Reason: Referrals: SANDEEP SINGLETON MD [Primary Care Provider] - Follow up as needed
[2020-08-26] MEDS ORDERED: PROCHLORPERAZINE EDISYLATE INJ 10 MG/2 ML VIAL IV ONE (00:57)
[2020-08-26] MEDS ORDERED: KETOROLAC TROMETHAMINE INJ/PF 30 MG/1 ML SDV IV ONE (00:57)
[2020-08-26] MEDS ORDERED: DIPHENHYDRAMINE HCL 50 MG/ML VIAL IV ONE (01:03)
[2020-08-26] MEDS ORDERED: NORMAL SALINE 1000 ML 1,000 ML IV ONE (01:03)
[2020-08-26 03:30] VITALS: BP 134/90
== END 2020-08-26 03:28 | disposition home or self-care (01) ==
LOC: ER 18:04
DX: R51.9 Headache, unspecified (principal); H53.149 Visual discomfort, unspecified; I10 Essential (primary) hypertension; Z86.16 Personal history of COVID-19; Z86.69 Personal history of other diseases of the nervous system and sense organs; Z88.0 Allergy status to penicillin; Z88.2 Allergy status to sulfonamides
CPT/HCPCS: 99285; 96361; 96374; 96375; 36415; 85025; 80048; 70450; J1200; J1885; J0780; J7030